=== PATIENT | male | born 1945 | race Caucasian/White ===

== ENCOUNTER 2017-07-30 17:25 | Inpatient (IN) | payer MEDICARE, SELFPAY ==
[2017-07-30 21:19] VITALS: BMI 29.0; BMI 29.1
[2017-07-30 21:40] VITALS: PULSE 83
[2017-07-30 21:54] VITALS: BP 100/46; PULSE 73; RESP 18; TEMP 37.7; O2SAT 96
--- NOTE | 2017-07-30 22:25 | PCM.HP.STD ---
Problem List (1) Neutropenic fever Status: Acute (2) Prostate cancer Status: Chronic (3) HTN (hypertension) Status: Chronic (4) CVA (cerebral vascular accident) Status: Chronic (5) Hyperlipidemia Status: Chronic (6) Depression Status: Chronic (7) Severe sepsis Status: Acute History of Present Illness Date of Admission: 07/30/17 Chief Complaint: fever The patient is a 71 year old M who underwent chemotherapy 2 weeks ago for prostate cancer presents with a one-day history of fever. Patient had a fever felt listless. At home, temperature was around 101 but at the emergency room, according to the family, temperature was 104 Fahrenheit. Patient had chest x-ray that was unremarkable. Patient was found to be neutropenic with an absolute neutrophil count of 200. Patient's oncologist is in the area and patient requested transfer from [facility] to [facility] for further care. In the emergency room, patient received 2 g of ceftriaxone 4.5 g of Zosyn normal saline and 1500 of vancomycin. Patient's fever did improve afterwards. I do not have an actual temperatures documented as the information provided from [facility] will involve the medications he was given lab work and the chest x-ray report. [] Past Medical History Past Medical History (Chronic Problems): Chronic Problems Prostate cancer (Chronic) HTN (hypertension) (Chronic) CVA (cerebral vascular accident) (Chronic) Hyperlipidemia (Chronic) Depression (Chronic) Allergies No Known Allergies Allergy (Verified 07/30/17 21:54) Home Medications: Ambulatory Orders Medication Instructions Recorded Aspirin [Aspirin, Baby] 81 mg PO DAILY@0800 07/30/17 Atorvastatin Calcium [Lipitor] 40 mg PO QHS 07/30/17 Bupropion HCl [Bupropion Xl] 150 mg PO DAILY 07/30/17 Cholecalciferol (VIT D3) [Vitamin 2,000 unit PO DAILY 07/30/17 D] Clopidogrel Bisulfate [Plavix] 75 mg PO DAILY 07/30/17 Cyanocobalamin (Vitamin B-12) 1,000 mcg PO DAILY 07/30/17 [Vitamin B-12] Hydrochlorothiazide 12.5 mg PO QODAY 07/30/17 [Hydrochlorothiazide] Pantoprazole Sodium [Protonix] 40 mg PO DAILY 07/30/17 Valsartan [Valsartan] 320 mg PO DAILY 07/30/17 Psychiatric History: Depression Lives: Spouse/ Significant Other Smoking Status: Former smoker Tobacco Use: Non-smoker Alcohol: None - Since starting chemotherapy Drugs: None - *Family History Sibling History Items: Cancer - Father with prostate and throat cancer Review of Systems Constitutional: Reports: Chills, Fever Eyes: Denies: Blurred vision, Double vision HEENT: Denies: Head Aches, Sinus Congestion, Sinus Drainage Cardiovascular: Denies: Chest Pain, Edema Respiratory: Reports: Cough. Denies: Shortness of breath at rest, Sputum production Gastrointestinal: Reports: Diarrhea, Nausea. Denies: Abdominal Pain, Vomiting Genitourinary: Denies: Dysuria, Incontinence Musculoskeletal: Denies: Joint Pain, Joint Tenderness Skin: Denies: Rash, Wounds Neurological: Denies: Numbness, Tingling, Focal weakness Psychiatric: Reports: Depression. Denies: Anxiety Endocrine: Denies: Change in Body Habitus, Heat/ Cold Intolerance Hematologic/ Lymphatic: Reports: Easy Bruising. Denies: Easy Bleeding, Hx of blood clot VTE Information - Inpt Only VTE Present on Admission: No VTE Pharm Prophylaxis ordered?: Yes Patient Problems: Active and Suspected Problems Neutropenic fever (Acute) Severe sepsis (Acute) - Physical Exam General: Alert, Cooperative, No apparent distress, - - Febrile HEENT: Atraumatic, PERRLA, EOMI, Normocephalic Oral: Moist Mucosa, No Gingival or Mucosal Lesions/ Ulcerations, - - Dentures in place Neck: No Nodes, Thyroid Normal Size and Texture Lungs: Clear to auscultation, Normal air movement, No rhonchi, No wheeze Cardiovascular: Regular rate, Regular Rhythm, Normal S1, Normal S2, No murmurs Abdomen: Bowel Sounds Present, Soft, Non Tender, Non-Distended, No Hepato-splenomegaly Extremities: No edema, No Calf Tenderness Skin: No rashes, - - Some bruising on his left elbow Musculoskeletal: No Tenderness to Palpation of Joints or Extremities, No Muscle Wasting Neurological: Deep Tendon Reflexes 2+/4 and Symmetrical, Neuro grossly intact, - - No clonus Psych/Mental Status: Normal Affect, Appropriate Vital Signs Temp Pulse Resp BP Pulse Ox 37.7 C H 73 18 100/46 L 96 07/30/17 21:54 07/30/17 21:54 07/30/17 21:54 07/30/17 21:54 07/30/17 21:54 Oxygen Flow Rate (L/min) 2 Oxygen Delivery Method Nasal Cannula Weight: 85.5 kg Body Mass Index (BMI) 29.0 Chest x-ray report from [facility] showed no acute findings. CBC showed a white count of 1.1, hemoglobin 12.7 and platelets of 198. Absolute neutrophil count was 200. Urinalysis was negative. BMP sodium 141, potassium 3.9, glucose 101, creatinine 1.08. LFTs were unremarkable. Lactic acid was 2.7 Assessment/Plan Active and Suspected Problems Neutropenic fever (Acute) Severe sepsis (Acute) 1. Severe sepsis Present on admission No clear source identified Urinalysis at the outside hospital was negative Chest x-ray at the outside hospital was negative Blood cultures were supposedly done at [facility] and will need to be followed up. Recheck blood cultures here Will check respiratory viral panel as well IV fluids and recheck lactic acid. 2. Neutropenic fever Absolute neutrophil count is 200 Patient will be on aztreonam. No indication for vancomycin at this time. Oncology will be on consultation to assist with his neutropenia. 3. 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 4. DVT prophylaxis with Lovenox 5. Advanced care planning. Patient wishes to be DNR Comfort Care arrest, no intubation and no PEG tube. Code Visit Inpatient E&M: 22918 Init Hosp L3
--- NOTE | 2017-07-30 22:35 | HP.PCM_ITS ---
Problem List (1) Neutropenic fever Status: Acute (2) Prostate cancer Status: Chronic (3) HTN (hypertension) Status: Chronic (4) CVA (cerebral vascular accident) Status: Chronic (5) Hyperlipidemia Status: Chronic (6) Depression Status: Chronic (7) Severe sepsis Status: Acute History of Present Illness Date of Admission: 07/30/17 Chief Complaint: fever The patient is a 71 year old M who underwent chemotherapy 2 weeks ago for prostate cancer presents with a one-day history of fever. Patient had a fever felt listless. At home, temperature was around 101 but at the emergency room, according to the family, temperature was 104 Fahrenheit. Patient had chest x- ray that was unremarkable. Patient was found to be neutropenic with an absolute neutrophil count of 200. Patient's oncologist is in the area and patient requested transfer from [facility] to [facility] for further care. In the emergency room, patient received 2 g of ceftriaxone 4.5 g of Zosyn normal saline and 1500 of vancomycin. Patient's fever did improve afterwards. I do not have an actual temperatures documented as the information provided from [facility] will involve the medications he was given lab work and the chest x-ray report. [] Past Medical History Past Medical History (Chronic Problems): Chronic Problems Prostate cancer (Chronic) HTN (hypertension) (Chronic) CVA (cerebral vascular accident) (Chronic) Hyperlipidemia (Chronic) Depression (Chronic) Allergies No Known Allergies Allergy (Verified 07/30/17 21:54) Home Medications: Ambulatory Orders Medication Instructions Recorded Aspirin [Aspirin, Baby] 81 mg PO DAILY@0800 07/30/17 Atorvastatin Calcium [Lipitor] 40 mg PO QHS 07/30/17 Bupropion HCl [Bupropion Xl] 150 mg PO DAILY 07/30/17 Cholecalciferol (VIT D3) [Vitamin 2,000 unit PO DAILY 07/30/17 D] Clopidogrel Bisulfate [Plavix] 75 mg PO DAILY 07/30/17 Cyanocobalamin (Vitamin B-12) 1,000 mcg PO DAILY 07/30/17 [Vitamin B-12] Hydrochlorothiazide 12.5 mg PO QODAY 07/30/17 [Hydrochlorothiazide] Pantoprazole Sodium [Protonix] 40 mg PO DAILY 07/30/17 Valsartan [Valsartan] 320 mg PO DAILY 07/30/17 Psychiatric History: Depression Lives: Spouse/ Significant Other Smoking Status: Former smoker Tobacco Use: Non-smoker Alcohol: None - Since starting chemotherapy Drugs: None - *Family History Sibling History Items: Cancer - Father with prostate and throat cancer Review of Systems Constitutional: Reports: Chills, Fever Eyes: Denies: Blurred vision, Double vision HEENT: Denies: Head Aches, Sinus Congestion, Sinus Drainage Cardiovascular: Denies: Chest Pain, Edema Respiratory: Reports: Cough. Denies: Shortness of breath at rest, Sputum production Gastrointestinal: Reports: Diarrhea, Nausea. Denies: Abdominal Pain, Vomiting Genitourinary: Denies: Dysuria, Incontinence Musculoskeletal: Denies: Joint Pain, Joint Tenderness Skin: Denies: Rash, Wounds Neurological: Denies: Numbness, Tingling, Focal weakness Psychiatric: Reports: Depression. Denies: Anxiety Endocrine: Denies: Change in Body Habitus, Heat/ Cold Intolerance Hematologic/ Lymphatic: Reports: Easy Bruising. Denies: Easy Bleeding, Hx of blood clot VTE Information - Inpt Only VTE Present on Admission: No VTE Pharm Prophylaxis ordered?: Yes Patient Problems: Active and Suspected Problems Neutropenic fever (Acute) Severe sepsis (Acute) - Physical Exam General: Alert, Cooperative, No apparent distress, - - Febrile HEENT: Atraumatic, PERRLA, EOMI, Normocephalic Oral: Moist Mucosa, No Gingival or Mucosal Lesions/ Ulcerations, - - Dentures in place Neck: No Nodes, Thyroid Normal Size and Texture Lungs: Clear to auscultation, Normal air movement, No rhonchi, No wheeze Cardiovascular: Regular rate, Regular Rhythm, Normal S1, Normal S2, No murmurs Abdomen: Bowel Sounds Present, Soft, Non Tender, Non-Distended, No Hepato- splenomegaly Extremities: No edema, No Calf Tenderness Skin: No rashes, - - Some bruising on his left elbow Musculoskeletal: No Tenderness to Palpation of Joints or Extremities, No Muscle Wasting Neurological: Deep Tendon Reflexes 2+/4 and Symmetrical, Neuro grossly intact, - - No clonus Psych/Mental Status: Normal Affect, Appropriate Vital Signs Temp Pulse Resp BP Pulse Ox 37.7 C H 73 18 100/46 L 96 07/30/17 21:54 07/30/17 21:54 07/30/17 21:54 07/30/17 21:54 07/30/17 21:54 Oxygen Flow Rate (L/min) 2 Oxygen Delivery Method Nasal Cannula Weight: 85.5 kg Body Mass Index (BMI) 29.0 Chest x-ray report from [facility] showed no acute findings. CBC showed a white count of 1.1, hemoglobin 12.7 and platelets of 198. Absolute neutrophil count was 200. Urinalysis was negative. BMP sodium 141, potassium 3.9, glucose 101, creatinine 1.08. LFTs were unremarkable. Lactic acid was 2.7 Assessment/Plan Active and Suspected Problems Neutropenic fever (Acute) Severe sepsis (Acute) 1. Severe sepsis * Present on admission * No clear source identified * Urinalysis at the outside hospital was negative * Chest x-ray at the outside hospital was negative * Blood cultures were supposedly done at [facility] and will need to be followed up. Recheck blood cultures here * Will check respiratory viral panel as well * IV fluids and recheck lactic acid. 2. Neutropenic fever * Absolute neutrophil count is 200 * Patient will be on aztreonam. No indication for vancomycin at this time. * Oncology will be on consultation to assist with his neutropenia. 3. Prostate cancer * Metastasis to the vertebrae and ribs * Oncology will be on consultation. 4. DVT prophylaxis with Lovenox 5. Advanced care planning. Patient wishes to be DNR Comfort Care arrest, no intubation and no PEG tube. Code Visit Inpatient E&M: 57554 Init Hosp L3
[2017-07-30] MEDS: 0.9% Normal Saline 1,000 ML 150 ML IV (22:49)
[2017-07-30 23:06] VITALS: PULSE 77
[2017-07-30 23:35] VITALS: O2SAT 92
[2017-07-31] VITALS (18 sets, daily range): BP systolic 85–109; BP diastolic 45–53; PULSE 73–142; RESP 16–18; TEMP 36.6–37.3; O2SAT 92–97
[2017-07-31 03:08] LABS: Reflex Lactate? Y
--- NOTE | 2017-07-31 04:19 | EKG12_ITS ---
Test Reason : RHYTHM CHANGE Blood Pressure : / mmHG Vent. Rate : 095 BPM Atrial Rate : 094 BPM P-R Int : 000 ms QRS Dur : 098 ms QT Int : 402 ms P-R-T Axes : 000 -39 002 degrees QTc Int : 505 ms Atrial fibrillation Left axis deviation Prolonged QT Abnormal ECG When compared with ECG of 31-JUL-2017 04:25, MANUAL COMPARISON REQUIRED, DATA IS UNCONFIRMED Confirmed by SCARLET LACEY, PEPE ([id number]), news videotape editor ARIANNA ROCHA ([id number] on 08/01/2017 3:06:11 PM Referred By: Marvin Virgen Confirmed By:PEPE NOVAK MD
--- NOTE | 2017-07-31 04:38 | ECHOCS_ITS ---
Reason For Study: AFIB Procedure This was a 2D Doppler, Color Flow transthoracic echocardiogram. The study was technically difficult. PT could not stay in left lateral decubitus position for exam. Contrast injection was performed. Exam performed portable in patient room. Left Ventricle Mild concentric left ventricular hypertrophy. The estimated ejection fraction is 75 %. No regional wall motion abnormalities noted. Right Ventricle NL RV Size with possible apica RV strain, cannot exclude pulmonary embolus as cause of RV dysfunction. Paradoxical septal motion consistent with RV volume overload. Atria The left atrium is severely enlarged. Normal atrial septum. Mitral Valve Mild diffuse mitral valve thickening. Severe mitral annular calcification extending into the posterior leaflet. Tricuspid Valve Normal tricuspid valve. Trivial tricuspid valve insufficiency. Right ventricular systolic pressure estimated to be 52 mmHg. Moderate pulmonary hypertension. Aortic Valve Trisinus/trileaflet aortic valve. Mild diffuse aortic valve thickening. Pulmonic Valve The pulmonic valve is not well visualized. Great Vessels Normal aortic root. Normal arch. The inferior vena cava is dilated. No collapse of the inferior vena cava. Pericardium/Pleural No pericardial effusion. Medication Diluted definity 2.5ml given slow IV push to enhance endocardial definition. MMode/2D Measurements & Calculations LVIDd: 4.7 cm IVSd: 1.4 cm Ao root diam: 3.2 cm LVIDs: 3.5 cm LVPWd: 1.2 cm LA dimension: 4.1 cm FS: 26.2 % LAV(MOD-bp): 75.9 ml LA A4 area: 24.4 cm2 LAV(MOD-bp) Indexed: 38.3 ml/m2 LAV(MOD-sp2): 76.1 ml LAV(MOD-sp4): 75.2 ml Doppler Measurements & Calculations MV E max vince: 130.2 cm/sec Ao V2 max: 131.8 cm/sec LV V1 max: 128.0 cm/sec Ao max P.0 mmHg LV V1 max P.6 mmHg PA V2 max: 79.6 cm/sec TR max vince: 307.7 cm/sec TR max P.9 mmHg Interpretation Summary Mild concentric left ventricular hypertrophy. The estimated ejection fraction is 75 %. NL RV Size with possible apica RV strain, cannot exclude pulmonary embolus as cause of RV dysfunction. The left atrium is severely enlarged. Trivial tricuspid valve insufficiency. Right ventricular systolic pressure estimated to be 52 mmHg. Moderate pulmonary hypertension. Pt appears to be in atrial fibrillation. The study was technically difficult. There is no comparison study available. Contrast injection was performed. Ordering Physician: Srinivas Back Referring Physician: Marvin Virgen Performed By: Barb Aragon RDCS, RVT
[2017-07-31] MEDS: 0.9% Normal Saline 1,000 ML 150 ML IV (05:20)
[2017-07-31 05:30] LABS: Basophil# 0.02 X10^3/uL; Differential Indicated SCAN CRITERIA MET; Eosinophil# 0.01 X10^3/uL; Hematocrit 32.2 % (40-54); Hemoglobin 10.7 g/dl (13.0-16.5); Mean Corp Hgb Conc 33.2 g/gl (32-36); Mean Corpuscular Hgb 29.2 pg (27.0-32.0); Mean Corpuscular Volume 87.7 fL (80-94); Mean Platelet Vol. 9.8 fl (6.2-12.0); Monocyte# 1.81 X10^3/uL; POSITIVE COUNT NO; POSITIVE DIFFERENTIAL YES; POSITIVE MORPHOLOGY NO; Platelet Count 142 K/mm3 (150-450); RBC Distribution Width SD 44.8 fl (35.1-43.9); Red Blood Count 3.67 M/mm3 (4.6-6.2)
[2017-07-31 05:39] LABS: Anion Gap 12 (5-15); BUN 29 mg/dL (7-18); BUN/Creat Ratio 16.5 RATIO (10-20); Calcium,Total 7.6 mg/dL (8.5-10.1); Chloride 110 mmol/L (98-107); Creatinine, Serum 1.76 mg/dL (0.70-1.30); EST Glomerular Filtration Rate 41 mL/min (>60); Est Glom Filt Rate - Afr Amer 49 mL/min (>60); Estimated Creatinine Clearance 34.95 ml/min; Glucose 61 mg/dL (74-106); Potassium 3.4 mmol/L (3.5-5.1); Sodium Level 143 mmol/L (136-145)
[2017-07-31 05:43] LABS: Lactic Acid 1.9 mmol/L (0.4-2.0)
[2017-07-31] MEDS: Metoprolol Tartrate 25 MG Tablet PO ×2 (06:19→21:23)
[2017-07-31 06:23] LABS: Scan Smear per Review Criteria MANUAL DIFF
[2017-07-31 06:24] LABS: Basophil 1 % (0-1); Lymphocyte 37 % (19-41); Metamyelocyte 1 % (0-1); Monocyte 25 % (0-10); Neutrophil-Band 19 % (0-5); Neutrophil-Segmented 18 % (47-70); White Blood Count 4.2 K/mm3 (4.4-11.0)
[2017-07-31 06:25] LABS: Vacuolated Cells 2+
[2017-07-31 06:27] LABS: Absolute Lymphocyte Count 1.55 X10^3/ul (0.83-4.51); Absolute Neutrophil Count 1.6 X10^3/uL (2.0-7.7); Lymphocyte # 1.55 X10^3/ul (4.0); Neutrophil # 1.55 X10^3/uL (2.7-7.7)
--- NOTE | 2017-07-31 08:06 | PCM.CONS.B ---
Problem List (1) Neutropenic fever Status: Acute (2) Prostate cancer Status: Chronic (3) Acute renal injury Status: Acute (4) Diarrhea due to drug Status: Acute - Consult Date of Consult: 07/31/17 The patient was seen requested by Dr. Lopez reguarding patient with peripheral vascular disease, metastatic prostate cancer who presented with neutropenic fever after chemotherapy 13 days ago. Final recommendation will be communicated to Dr. Lopez also by electronic medical records. - Reason for Consult Neutropenic fever Diarrhea Metastatic prostate cancer History of Present Illness Date of Admission: 07/30/17 Chief Complaint: fever The patient is a 71 year old M who underwent chemotherapy 2 weeks ago with Docetaxel 75mg/m2 for hormone refractory metastatic prostate cancer presents with a one-day history of fever, chills with diarrhea. Patient had a fever felt less and hypotensive in the ER at [facility]. At home, temperature was around 101 but at the emergency room, according to the family, temperature was 104 Fahrenheit. Patient had chest x-ray that was unremarkable. Patient was found to be neutropenic with an absolute neutrophil count of 200. In the emergency room, patient received IV bolus 1500 cc and Zosyn and vancomycin. Patient's fever did improve afterwards. Oncological history: Patient previous endocrine therapies LHRH agonist Zytiga & prednisone Enzuludimide Past Medical History Past Medical History (Chronic Problems): Chronic Problems Prostate cancer (Chronic) HTN (hypertension) (Chronic) CVA (cerebral vascular accident) (Chronic) Hyperlipidemia (Chronic) Depression (Chronic) Allergies No Known Allergies Allergy (Verified 07/30/17 21:54) Home Medications: Ambulatory Orders Medication Instructions Recorded Aspirin [Aspirin, Baby] 81 mg PO DAILY@0800 07/30/17 Atorvastatin Calcium [Lipitor] 40 mg PO QHS 07/30/17 Bupropion HCl [Bupropion Xl] 150 mg PO DAILY 07/30/17 Cholecalciferol (VIT D3) [Vitamin 2,000 unit PO DAILY 07/30/17 D] Clopidogrel Bisulfate [Plavix] 75 mg PO DAILY 07/30/17 Cyanocobalamin (Vitamin B-12) 1,000 mcg PO DAILY 07/30/17 [Vitamin B-12] Hydrochlorothiazide 12.5 mg PO QODAY 07/30/17 [Hydrochlorothiazide] Pantoprazole Sodium [Protonix] 40 mg PO DAILY 07/30/17 Valsartan [Valsartan] 320 mg PO DAILY 07/30/17 Psychiatric History: Depression Lives: Spouse/ Significant Other Smoking Status: Former smoker Tobacco Use: Non-smoker Alcohol: None - Since starting chemotherapy Drugs: None - *Family History Sibling History Items: Cancer - Father with prostate and throat cancer Review of Systems Constitutional: Reports: Chills, Fever Eyes: Denies: Blurred vision, Double vision HEENT: Denies: Head Aches, Sinus Congestion, Sinus Drainage Cardiovascular: Denies: Chest Pain, Edema Respiratory: Reports: Cough. Denies: Shortness of breath at rest, Sputum production Gastrointestinal: Reports: Diarrhea, Nausea. Denies: Abdominal Pain, Vomiting Genitourinary: Denies: Dysuria, Incontinence Musculoskeletal: Denies: Joint Pain, Joint Tenderness Skin: Denies: Rash, Wounds Neurological: Denies: Numbness, Tingling, Focal weakness Psychiatric: Reports: Depression. Denies: Anxiety Endocrine: Denies: Change in Body Habitus, Heat/ Cold Intolerance Hematologic/ Lymphatic: Reports: Easy Bruising. Denies: Easy Bleeding, Hx of blood clot VTE Information - Inpt Only VTE Present on Admission: No VTE Pharm Prophylaxis ordered?: Yes Patient Problems: Active and Suspected Problems Neutropenic fever (Acute) Diarrhea (Acute) Renal injury (Acute) - Physical Exam General: Alert, Cooperative, No apparent distress, - - Febrile HEENT: Atraumatic, PERRLA, EOMI, Normocephalic Oral: Moist Mucosa, No Gingival or Mucosal Lesions/ Ulcerations, - - Dentures in place Neck: No Nodes, Thyroid Normal Size and Texture Lungs: Clear to auscultation, Normal air movement, No rhonchi, No wheeze Cardiovascular: Regular rate, Regular Rhythm, Normal S1, Normal S2, No murmurs Abdomen: Bowel Sounds Present, Soft, Non Tender, Non-Distended, No Hepato-splenomegaly Extremities: No edema, No Calf Tenderness Skin: No rashes, - - Some bruising on his left elbow Musculoskeletal: No Tenderness to Palpation of Joints or Extremities, No Muscle Wasting Neurological: Deep Tendon Reflexes 2+/4 and Symmetrical, Neuro grossly intact, - - No clonus Psych/Mental Status: Normal Affect, Appropriate Vital Signs - 24 hr Temp Pulse Resp BP BP Pulse Ox 07/31/17 06:59 100 07/31/17 06:19 99 92/50 L 07/31/17 06:15 98.0 F 99 18 92/50 L 96 07/31/17 05:29 87/46 L 07/31/17 05:27 97.8 F 106 H 18 93/45 L 93 07/31/17 04:22 142 H 07/31/17 04:00 99.1 F 94 18 93/49 L 95 07/31/17 03:10 73 07/30/17 23:35 92 07/30/17 23:06 77 07/30/17 21:54 99.9 F H 73 18 100/46 L 96 07/30/17 21:40 83 Oxygen Flow Rate (L/min) 2 Oxygen Delivery Method Nasal Cannula Weight: 85.5 kg Body Mass Index (BMI) 29.0 Chest x-ray report from [facility] showed no acute findings. Laboratory Results - last 24 hr 07/30/17 07/31/17 07/31/17 22:58 05:05 05:05 WBC 4.2 L RBC 3.67 L Hgb 10.7 L Hct 32.2 L MCV 87.7 MCH 29.2 MCHC 33.2 RDW 14.0 RDW Differential 44.8 H Plt Count 142 L MPV 9.8 Immature Gran % (Auto) SURGICAL SERVICES TECH Neut % (Auto) SURGICAL SERVICES TECH Lymph % (Auto) SURGICAL SERVICES TECH [place] % (Auto) SURGICAL SERVICES TECH Eos % (Auto) SURGICAL SERVICES TECH Baso % (Auto) SURGICAL SERVICES TECH Absolute Neuts (auto) 1.6 L Absolute Lymphs (auto) 1.55 Total Counted Not Reportable Neutrophils % (Manual) 18 L Band Neutrophils % 19 H Lymphocytes % (Manual) 37 Monocytes % (Manual) 25 H Basophils % (Manual) 1 Metamyelocytes % 1 Differential Comment 2+ Diff Path Review May foll Sodium 143 Potassium 3.4 L Chloride 110 H Carbon Dioxide 21.0 Anion Gap 12 BUN 29 H Creatinine 1.76 H Estim Creat Clear Calc 34.95 Est GFR (MDRD) Af Amer 49 L Est GFR (MDRD) Non-Af 41 L BUN/Creatinine Ratio 16.5 Glucose 61 L Lactic Acid 2.0 Calcium 7.6 L Troponin I 07/31/17 07/31/17 05:05 05:05 WBC RBC Hgb Hct MCV MCH MCHC RDW RDW Differential Plt Count MPV Immature Gran % (Auto) Neut % (Auto) Lymph % (Auto) [place] % (Auto) Eos % (Auto) Baso % (Auto) Absolute Neuts (auto) Absolute Lymphs (auto) Total Counted Neutrophils % (Manual) Band Neutrophils % Lymphocytes % (Manual) Monocytes % (Manual) Basophils % (Manual) Metamyelocytes % Differential Comment Diff Path Review Sodium Potassium Chloride Carbon Dioxide Anion Gap BUN Creatinine Estim Creat Clear Calc Est GFR (MDRD) Af Amer Est GFR (MDRD) Non-Af BUN/Creatinine Ratio Glucose Lactic Acid 1.9 Calcium Troponin I 0.027 Microbiology Past 72 Hours 07/31/17 02:45 C. difficile DNA Amplification - Final Stool Assessment/Plan Active and Suspected Problems Neutropenic fever (Acute) Diarrhea from chemotherapy (Acute) Acute renal injury (Acute) 1. Neutropenic fever Present on admission No clear source of infection except for diarrhea Urinalysis at the outside hospital was negative Chest x-ray at the outside hospital was negative Continue empiric antibiotic, meropenem x 24 more hours; if blood cultures negative may DC tomorrow. Blood cultures are pending respiratory viral panel and c difficile toxin and stool cultures 2. Anemia & neutropenia secondary chemotherapy Monitor CBC daily No need for G-CSF; past jordan and WBC improving Neulasta with subsequent cycle of chemotherapy 3. Acute renal injury secondary to chemotherapy, dehydration and diarrhea. Continue IV fluid and monitor electrolytes and replace if necessary Monitor Electrolytes and renal functions Hold HCTZ & Diovan because of hypotension 4. Diarrhea Sandostatin 100mcg sq q. 8 hours LactoBacillus 4 times daily Change Regular diet to BRAT diet 5. Metastatic prostate cancer Follow-up next week next cycle of chemotherapy in my office. cc Dr. Lawrence Barajas; Dr. Lamont Prakash
--- NOTE | 2017-07-31 08:20 | EKG12_ITS ---
Test Reason : TACHY Blood Pressure : / mmHG Vent. Rate : 117 BPM Atrial Rate : 119 BPM P-R Int : 000 ms QRS Dur : 094 ms QT Int : 374 ms P-R-T Axes : 000 -39 010 degrees QTc Int : 521 ms Atrial fibrillation Left axis deviation Nonspecific ST abnormality Prolonged QT Abnormal ECG No previous ECGs available Confirmed by SCARLET LACEY, PEPE ([id number]), editorial specialist ARIANNA ROCHA ([id number] on 08/01/2017 3:06:49 PM Referred By: Marvin Virgen Confirmed By:PEPE NOVAK MD
--- NOTE | 2017-07-31 08:33 | CON.PCM_ITS ---
Problem List (1) Neutropenic fever Status: Acute (2) Prostate cancer Status: Chronic (3) Acute renal injury Status: Acute (4) Diarrhea due to drug Status: Acute - Consult Date of Consult: 07/31/17 The patient was seen requested by Dr. Lopez reguarding patient with peripheral vascular disease, metastatic prostate cancer who presented with neutropenic fever after chemotherapy 13 days ago. Final recommendation will be communicated to Dr. Lopez also by electronic medical records. - Reason for Consult Neutropenic fever Diarrhea Metastatic prostate cancer History of Present Illness Date of Admission: 07/30/17 Chief Complaint: fever The patient is a 71 year old M who underwent chemotherapy 2 weeks ago with Docetaxel 75mg/m2 for hormone refractory metastatic prostate cancer presents with a one-day history of fever, chills with diarrhea. Patient had a fever felt less and hypotensive in the ER at [facility]. At home, temperature was around 101 but at the emergency room, according to the family, temperature was 104 Fahrenheit. Patient had chest x-ray that was unremarkable. Patient was found to be neutropenic with an absolute neutrophil count of 200. In the emergency room, patient received IV bolus 1500 cc and Zosyn and vancomycin. Patient's fever did improve afterwards. Oncological history: Patient previous endocrine therapies LHRH agonist Zytiga & prednisone Enzuludimide Past Medical History Past Medical History (Chronic Problems): Chronic Problems Prostate cancer (Chronic) HTN (hypertension) (Chronic) CVA (cerebral vascular accident) (Chronic) Hyperlipidemia (Chronic) Depression (Chronic) Allergies No Known Allergies Allergy (Verified 07/30/17 21:54) Home Medications: Ambulatory Orders Medication Instructions Recorded Aspirin [Aspirin, Baby] 81 mg PO DAILY@0800 07/30/17 Atorvastatin Calcium [Lipitor] 40 mg PO QHS 07/30/17 Bupropion HCl [Bupropion Xl] 150 mg PO DAILY 07/30/17 Cholecalciferol (VIT D3) [Vitamin 2,000 unit PO DAILY 07/30/17 D] Clopidogrel Bisulfate [Plavix] 75 mg PO DAILY 07/30/17 Cyanocobalamin (Vitamin B-12) 1,000 mcg PO DAILY 07/30/17 [Vitamin B-12] Hydrochlorothiazide 12.5 mg PO QODAY 07/30/17 [Hydrochlorothiazide] Pantoprazole Sodium [Protonix] 40 mg PO DAILY 07/30/17 Valsartan [Valsartan] 320 mg PO DAILY 07/30/17 Psychiatric History: Depression Lives: Spouse/ Significant Other Smoking Status: Former smoker Tobacco Use: Non-smoker Alcohol: None - Since starting chemotherapy Drugs: None - *Family History Sibling History Items: Cancer - Father with prostate and throat cancer Review of Systems Constitutional: Reports: Chills, Fever Eyes: Denies: Blurred vision, Double vision HEENT: Denies: Head Aches, Sinus Congestion, Sinus Drainage Cardiovascular: Denies: Chest Pain, Edema Respiratory: Reports: Cough. Denies: Shortness of breath at rest, Sputum production Gastrointestinal: Reports: Diarrhea, Nausea. Denies: Abdominal Pain, Vomiting Genitourinary: Denies: Dysuria, Incontinence Musculoskeletal: Denies: Joint Pain, Joint Tenderness Skin: Denies: Rash, Wounds Neurological: Denies: Numbness, Tingling, Focal weakness Psychiatric: Reports: Depression. Denies: Anxiety Endocrine: Denies: Change in Body Habitus, Heat/ Cold Intolerance Hematologic/ Lymphatic: Reports: Easy Bruising. Denies: Easy Bleeding, Hx of blood clot VTE Information - Inpt Only VTE Present on Admission: No VTE Pharm Prophylaxis ordered?: Yes Patient Problems: Active and Suspected Problems Neutropenic fever (Acute) Diarrhea (Acute) Renal injury (Acute) - Physical Exam General: Alert, Cooperative, No apparent distress, - - Febrile HEENT: Atraumatic, PERRLA, EOMI, Normocephalic Oral: Moist Mucosa, No Gingival or Mucosal Lesions/ Ulcerations, - - Dentures in place Neck: No Nodes, Thyroid Normal Size and Texture Lungs: Clear to auscultation, Normal air movement, No rhonchi, No wheeze Cardiovascular: Regular rate, Regular Rhythm, Normal S1, Normal S2, No murmurs Abdomen: Bowel Sounds Present, Soft, Non Tender, Non-Distended, No Hepato- splenomegaly Extremities: No edema, No Calf Tenderness Skin: No rashes, - - Some bruising on his left elbow Musculoskeletal: No Tenderness to Palpation of Joints or Extremities, No Muscle Wasting Neurological: Deep Tendon Reflexes 2+/4 and Symmetrical, Neuro grossly intact, - - No clonus Psych/Mental Status: Normal Affect, Appropriate Vital Signs - 24 hr Temp Pulse Resp BP BP Pulse Ox 07/31/17 06:59 100 07/31/17 06:19 99 92/50 L 07/31/17 06:15 98.0 F 99 18 92/50 L 96 07/31/17 05:29 87/46 L 07/31/17 05:27 97.8 F 106 H 18 93/45 L 93 07/31/17 04:22 142 H 07/31/17 04:00 99.1 F 94 18 93/49 L 95 07/31/17 03:10 73 07/30/17 23:35 92 07/30/17 23:06 77 07/30/17 21:54 99.9 F H 73 18 100/46 L 96 07/30/17 21:40 83 Oxygen Flow Rate (L/min) 2 Oxygen Delivery Method Nasal Cannula Weight: 85.5 kg Body Mass Index (BMI) 29.0 Chest x-ray report from [facility] showed no acute findings. Laboratory Results - last 24 hr 07/30/17 07/31/17 07/31/17 22:58 05:05 05:05 WBC 4.2 L RBC 3.67 L Hgb 10.7 L Hct 32.2 L MCV 87.7 MCH 29.2 MCHC 33.2 RDW 14.0 RDW Differential 44.8 H Plt Count 142 L MPV 9.8 Immature Gran % (Auto) REAL ESTATE SALESPERSON Neut % (Auto) REAL ESTATE SALESPERSON Lymph % (Auto) REAL ESTATE SALESPERSON [place] % (Auto) REAL ESTATE SALESPERSON Eos % (Auto) REAL ESTATE SALESPERSON Baso % (Auto) REAL ESTATE SALESPERSON Absolute Neuts (auto) 1.6 L Absolute Lymphs (auto) 1.55 Total Counted Not Reportable Neutrophils % (Manual) 18 L Band Neutrophils % 19 H Lymphocytes % (Manual) 37 Monocytes % (Manual) 25 H Basophils % (Manual) 1 Metamyelocytes % 1 Differential Comment 2+ Diff Path Review May foll Sodium 143 Potassium 3.4 L Chloride 110 H Carbon Dioxide 21.0 Anion Gap 12 BUN 29 H Creatinine 1.76 H Estim Creat Clear Calc 34.95 Est GFR (MDRD) Af Amer 49 L Est GFR (MDRD) Non-Af 41 L BUN/Creatinine Ratio 16.5 Glucose 61 L Lactic Acid 2.0 Calcium 7.6 L Troponin I 07/31/17 07/31/17 05:05 05:05 WBC RBC Hgb Hct MCV MCH MCHC RDW RDW Differential Plt Count MPV Immature Gran % (Auto) Neut % (Auto) Lymph % (Auto) [place] % (Auto) Eos % (Auto) Baso % (Auto) Absolute Neuts (auto) Absolute Lymphs (auto) Total Counted Neutrophils % (Manual) Band Neutrophils % Lymphocytes % (Manual) Monocytes % (Manual) Basophils % (Manual) Metamyelocytes % Differential Comment Diff Path Review Sodium Potassium Chloride Carbon Dioxide Anion Gap BUN Creatinine Estim Creat Clear Calc Est GFR (MDRD) Af Amer Est GFR (MDRD) Non-Af BUN/Creatinine Ratio Glucose Lactic Acid 1.9 Calcium Troponin I 0.027 Microbiology Past 72 Hours 07/31/17 02:45 C. difficile DNA Amplification - Final Stool Assessment/Plan Active and Suspected Problems Neutropenic fever (Acute) Diarrhea from chemotherapy (Acute) Acute renal injury (Acute) 1. Neutropenic fever * Present on admission * No clear source of infection except for diarrhea * Urinalysis at the outside hospital was negative * Chest x-ray at the outside hospital was negative * Continue empiric antibiotic, meropenem x 24 more hours; if blood cultures negative may DC tomorrow. * Blood cultures are pending * respiratory viral panel and c difficile toxin and stool cultures 2. Anemia & neutropenia secondary chemotherapy * Monitor CBC daily * No need for G-CSF; past jordan and WBC improving * Neulasta with subsequent cycle of chemotherapy 3. Acute renal injury secondary to chemotherapy, dehydration and diarrhea. * Continue IV fluid and monitor electrolytes and replace if necessary * Monitor Electrolytes and renal functions * Hold HCTZ & Diovan because of hypotension 4. Diarrhea Sandostatin 100mcg sq q. 8 hours LactoBacillus 4 times daily Change Regular diet to BRAT diet 5. Metastatic prostate cancer Follow-up next week next cycle of chemotherapy in my office. cc Dr. Lawrence Barajas; Dr. Lamont Prakash
[2017-07-31] MEDS: Enoxaparin 40 MG/0.4 ML Syringe SC (09:57)
[2017-07-31] MEDS: Cyanocobalamin 500 MCG Tablet 1000 MCG PO (09:57)
[2017-07-31] MEDS: buPROPion (XL) 150 MG TABLET.XL PO (09:57)
[2017-07-31] MEDS: Clopidogrel Bisulfate 75 MG Tablet PO (09:57)
[2017-07-31] MEDS: Pantoprazole Sodium 40 MG Tablet PO (09:57)
[2017-07-31] MEDS: Aspirin 81 MG TAB.CHEW PO (09:57)
--- NOTE | 2017-07-31 10:27 | PCM.CONS.C ---
Problem List (1) Atrial fibrillation Status: Acute (2) HTN (hypertension) Status: Chronic (3) CVA (cerebral vascular accident) Status: Chronic (4) Hyperlipidemia Status: Chronic Reason for Consult Date of Consultation: 07/31/17 Reason for Consultation: Atrial fibrillation, hypertension, CVA History of Present Illness: The patient is a 71 year old M, no known cardiac history, no local hiv counselor, nondiabetic, who apparently suffered a CVA several months ago and has been treated with Plavix therapy only. Patient is recently been diagnosed with prostate cancer, and recently underwent chemotherapy about 1 week ago. Patient developed high-grade fever at home and presented to [facility] for care. As his hematology oncologist is local, he was transferred to [facility]. The patient received antibiotic therapy and a heme consult from Dr. Mora. The patient was found to have atrial fibrillation with rapid ventricular response, and consultation was requested for same. Patient appears to be oscillating back and forth between normal sinus rhythm and atrial fibrillation with rapid ventricular response. A 2D echo with Doppler was performed this morning which I reviewed. The patient has hyperdynamic LV function which appears to be underfilled, EF about 75%, evidence of RV apical strain possibly consistent with acute pulmonary embolism, and at least moderate pulmonary hypertension with an RVSP of 52 mmHg. No previous echocardiograms were available for comparison. In addition the patient has chronic renal insufficiency with a creatinine of 1.7 today. Her graft patient denies any chest pain, angina, but does complain of palpitations when he is in atrial fibrillation. His EKG shows atrial fibrillation with rapid ventricular response, left anterior hemiblock, no acute changes. His initial troponin was 0.027, and is increased to 0.052. [] Past Medical History Allergies/Adverse Reactions: Allergies No Known Allergies Allergy (Verified 07/30/17 21:54) Home Medications: Ambulatory Orders Medication Instructions Recorded Aspirin [Aspirin, Baby] 81 mg PO DAILY@0800 07/30/17 Atorvastatin Calcium [Lipitor] 40 mg PO QHS 07/30/17 Bupropion HCl [Bupropion Xl] 150 mg PO DAILY 07/30/17 Cholecalciferol (VIT D3) [Vitamin 2,000 unit PO DAILY 07/30/17 D] Clopidogrel Bisulfate [Plavix] 75 mg PO DAILY 07/30/17 Cyanocobalamin (Vitamin B-12) 1,000 mcg PO DAILY 07/30/17 [Vitamin B-12] Hydrochlorothiazide 12.5 mg PO QODAY 07/30/17 [Hydrochlorothiazide] Pantoprazole Sodium [Protonix] 40 mg PO DAILY 07/30/17 Valsartan [Valsartan] 320 mg PO DAILY 07/30/17 Past Medical History (Chronic Problems): Chronic Problems Prostate cancer (Chronic) HTN (hypertension) (Chronic) CVA (cerebral vascular accident) (Chronic) Hyperlipidemia (Chronic) Depression (Chronic) Psychiatric History: Depression - *Family History Sibling History Items: Cancer - Father with prostate and throat cancer Lives: Spouse/ Significant Other Smoking Status: Former smoker Tobacco Use: Non-smoker Alcohol: None - Since starting chemotherapy Drugs: None Review of Systems - Review of Systems General: Reports: Fever, Fatigue, Malaise, Weakness. Denies: Night Sweats Cardiovascular: Denies: Chest Discomfort, Shortness of Breath, Orthopnea, PND, Peripheral Edema, Palpitations, Lightheadedness, Dizziness, Near Syncope, Syncope Respiratory: Denies: Cough, Sputum Production, Hemoptysis Gastrointestinal: Denies: Hematemesis, Hematochezia, Melena Genitourinary: Denies: Dysuria, Hematuria Skin: Denies: Rash Subjectve: Patient laying in bed, no acute distress. Objective: Vital Signs Temp Pulse Resp BP Pulse Ox 98.4 F 90 16 105/48 L 93 07/31/17 10:00 07/31/17 10:00 07/31/17 10:00 07/31/17 10:00 07/31/17 10:00 Oxygen Flow Rate (L/min) 2 Oxygen Delivery Method Room Air Weight: 188 lb 7.924 oz Body Mass Index (BMI) 29.0 Intake and Output for Last 24 Hours 07/29/17 07/30/17 07/31/17 23:59 23:59 23:59 Intake Total 100 / 100 1038 / 1038 Output Total 200 / 200 Balance 100 / 100 838 / 838 General: Awake, Alert, Oriented x 3 HEENT: PERRL, EOMI, Sclera Non Icteric Neck: Supple, Good ROM, No Lymph Node Enlargement Lungs: Clear to auscultation Cardiovascular: Irregular Rhythm, Normal S1, Normal S2, No Murmurs, No Rubs, No Gallops Vascular: No Carotid Bruits, Normal Femoral Pulses, Normal Radial Pulses, Normal Dorsalis Pedal Pulse, Normal Posterior Tibial Pulses Abdomen: Bowel Sounds Present, Soft, Non Tender, No HSM, No Organomegaly Extremities: No Cyanosis, No Clubbing, No edema Neurological: No Focal Motor or Sensory Deficit 07/30/17 22:58: Lactic Acid 2.0 07/31/17 05:05: WBC 4.2 L, RBC 3.67 L, Hgb 10.7 L, Hct 32.2 L, MCV 87.7, MCH 29.2, MCHC 33.2, RDW 14.0, RDW Differential 44.8 H, Plt Count 142 L, MPV 9.8, Immature Gran % (Auto) STORE GROUP MANAGER, Neut % (Auto) STORE GROUP MANAGER, Lymph % (Auto) STORE GROUP MANAGER, [place] % (Auto) STORE GROUP MANAGER, Eos % (Auto) STORE GROUP MANAGER, Baso % (Auto) STORE GROUP MANAGER, Absolute Neuts (auto) 1.6 L, Total Counted Not Reportable, Neutrophils % (Manual) 18 L, Band Neutrophils % 19 H, Lymphocytes % (Manual) 37, Monocytes % (Manual) 25 H, Basophils % (Manual) 1, Metamyelocytes % 1 07/31/17 05:05: Sodium 143, Potassium 3.4 L, Chloride 110 H, Carbon Dioxide 21.0, Anion Gap 12, BUN 29 H, Creatinine 1.76 H, Est GFR (MDRD) Af Amer 49 L, Est GFR (MDRD) Non-Af 41 L, BUN/Creatinine Ratio 16.5, Glucose 61 L, Calcium 7.6 L 07/31/17 05:05: Lactic Acid 1.9 07/31/17 05:05: Troponin I 0.027 07/31/17 08:00: Troponin I 0.052 H Rhythm: Atrial fibrillation with rapid ventricular response alternating with normal sinus rhythm. EKG: As above ECHO: As above Stress Test: Cardiac Cath: PCI: CT Surgery: Holter monitor: EPS: PPM: CXR: Chest CT Scan: Assessment/Plan 1. Atrial fibrillation: Patient presents with neutropenic fever, chills, malaise, and paroxysmal atrial fibrillation, with a history of a previous CVA. It is possible the patient may have paroxysmal atrial fibrillation which may have contributed to his CVA in the past. In addition his 2D echo with Doppler suggest although not confirms acute RV strain with RV apical wall motion abnormalities and moderate point hypertension. Given the patient's chronic renal insufficiency, it is somewhat problematic to pursue CTA of his chest to rule out pulmonary embolism at this time. Would recommend d-dimer and lower extremity Dopplers. The patient has any evidence of thrombus, we can assume that he may have a pulmonary embolism which would impact on heart rate controlling medications until this is resolved. I believe the patient would benefit from long-term anticoagulation therapy given his previous CVA, atrial fibrillation, and recently diagnosed prostate cancer requiring chemotherapy giving him an increased risk of thrombus formation. He is currently on renally adjusted subcu Lovenox which I would recommend continuing. Once his cardiac workup is been completed and his diagnosis has been obtained he may require a non-walking nuclear stress test in the near future to determine if he requires catheterization. Another option would be a VQ scan to determine if he has significant perfusion defect. Would Recommend Renally Adjusted Eliquis 2.5 Mg P.O. Twice Daily Once His Cardiac Workup Is Been Completed. 2. Coronary artery disease: The patient is weakly positive troponins which may be demand ischemia given his hyperdynamic LV function and possible acute RV strain. Would recommend a non-walking nuclear stress test to evaluate once the patient is recovered from his illnesses. No indication for urgent catheterization at this time. 3. Hyperlipidemia: Recommend obtaining a fasting lipid profile. His LDL should be less than 70. Continue statin based medications. 4. Discussed with Dr. Xenia Reid. Consultation time took place between 8 AM and 8:30 AM.
--- NOTE | 2017-07-31 10:31 | NM_ITS ---
CLINICAL: Male, 71 years old. Right ventricular strain. NUCLEAR VENTILATION/PERFUSION - LUNG TECHNIQUE: The patient was administered 5.6 mCi of Tc MAA followed by a perfusion lung scan. The patient was administered 48.1 mCi of Tc DTPA aerosol followed by a ventilation lung scan. Comparison made to prior chest radiograph dated . COMPARISON STUDIES : Comparison is made with prior chest radiograph done earlier in the day. FINDINGS: The pulmonary perfusion study demonstrates uniform perfusion throughout both lung briscoe. There are no demonstrated segmental or subsegmental perfusion defects The ventilation study demonstrates uniform ventilation throughout both lung briscoe. There are no segmental or subsegmental ventilation abnormalities. NM/Lung Scan Vent/Perf IMPRESSION: Normal 99m Tc MAA pulmonary perfusion Tc DTPA aerosol ventilation imaging survey, according to revised PIOPED interpretive criteria. Electronically Signed: Moustapha Galarza MD at 13:05 EDT Tel [phone], Service support ,
--- NOTE | 2017-07-31 10:37 | CON.PCM_ITS ---
Problem List (1) Atrial fibrillation Status: Acute (2) HTN (hypertension) Status: Chronic (3) CVA (cerebral vascular accident) Status: Chronic (4) Hyperlipidemia Status: Chronic Reason for Consult Date of Consultation: 07/31/17 Reason for Consultation: Atrial fibrillation, hypertension, CVA History of Present Illness: The patient is a 71 year old M, no known cardiac history, no local napkin band wrapper , nondiabetic, who apparently suffered a CVA several months ago and has been treated with Plavix therapy only. Patient is recently been diagnosed with prostate cancer, and recently underwent chemotherapy about 1 week ago. Patient developed high-grade fever at home and presented to [facility] for care. As his hematology oncologist is local, he was transferred to [facility]. The patient received antibiotic therapy and a heme consult from Dr. Mora. The patient was found to have atrial fibrillation with rapid ventricular response, and consultation was requested for same. Patient appears to be oscillating back and forth between normal sinus rhythm and atrial fibrillation with rapid ventricular response. A 2D echo with Doppler was performed this morning which I reviewed. The patient has hyperdynamic LV function which appears to be underfilled, EF about 75%, evidence of RV apical strain possibly consistent with acute pulmonary embolism, and at least moderate pulmonary hypertension with an RVSP of 52 mmHg. No previous echocardiograms were available for comparison. In addition the patient has chronic renal insufficiency with a creatinine of 1.7 today. Her graft patient denies any chest pain, angina, but does complain of palpitations when he is in atrial fibrillation. His EKG shows atrial fibrillation with rapid ventricular response, left anterior hemiblock, no acute changes. His initial troponin was 0.027, and is increased to 0.052. [] Past Medical History Allergies/Adverse Reactions: Allergies No Known Allergies Allergy (Verified 07/30/17 21:54) Home Medications: Ambulatory Orders Medication Instructions Recorded Aspirin [Aspirin, Baby] 81 mg PO DAILY@0800 07/30/17 Atorvastatin Calcium [Lipitor] 40 mg PO QHS 07/30/17 Bupropion HCl [Bupropion Xl] 150 mg PO DAILY 07/30/17 Cholecalciferol (VIT D3) [Vitamin 2,000 unit PO DAILY 07/30/17 D] Clopidogrel Bisulfate [Plavix] 75 mg PO DAILY 07/30/17 Cyanocobalamin (Vitamin B-12) 1,000 mcg PO DAILY 07/30/17 [Vitamin B-12] Hydrochlorothiazide 12.5 mg PO QODAY 07/30/17 [Hydrochlorothiazide] Pantoprazole Sodium [Protonix] 40 mg PO DAILY 07/30/17 Valsartan [Valsartan] 320 mg PO DAILY 07/30/17 Past Medical History (Chronic Problems): Chronic Problems Prostate cancer (Chronic) HTN (hypertension) (Chronic) CVA (cerebral vascular accident) (Chronic) Hyperlipidemia (Chronic) Depression (Chronic) Psychiatric History: Depression - *Family History Sibling History Items: Cancer - Father with prostate and throat cancer Lives: Spouse/ Significant Other Smoking Status: Former smoker Tobacco Use: Non-smoker Alcohol: None - Since starting chemotherapy Drugs: None Review of Systems - Review of Systems General: Reports: Fever, Fatigue, Malaise, Weakness. Denies: Night Sweats Cardiovascular: Denies: Chest Discomfort, Shortness of Breath, Orthopnea, PND, Peripheral Edema, Palpitations, Lightheadedness, Dizziness, Near Syncope, Syncope Respiratory: Denies: Cough, Sputum Production, Hemoptysis Gastrointestinal: Denies: Hematemesis, Hematochezia, Melena Genitourinary: Denies: Dysuria, Hematuria Skin: Denies: Rash Subjectve: Patient laying in bed, no acute distress. Objective: Vital Signs Temp Pulse Resp BP Pulse Ox 98.4 F 90 16 105/48 L 93 07/31/17 10:00 07/31/17 10:00 07/31/17 10:00 07/31/17 10:00 07/31/17 10:00 Oxygen Flow Rate (L/min) 2 Oxygen Delivery Method Room Air Weight: 188 lb 7.924 oz Body Mass Index (BMI) 29.0 Intake and Output for Last 24 Hours 07/29/17 07/30/17 07/31/17 23:59 23:59 23:59 Intake Total 100 / 100 1038 / 1038 Output Total 200 / 200 Balance 100 / 100 838 / 838 General: Awake, Alert, Oriented x 3 HEENT: PERRL, EOMI, Sclera Non Icteric Neck: Supple, Good ROM, No Lymph Node Enlargement Lungs: Clear to auscultation Cardiovascular: Irregular Rhythm, Normal S1, Normal S2, No Murmurs, No Rubs, No Gallops Vascular: No Carotid Bruits, Normal Femoral Pulses, Normal Radial Pulses, Normal Dorsalis Pedal Pulse, Normal Posterior Tibial Pulses Abdomen: Bowel Sounds Present, Soft, Non Tender, No HSM, No Organomegaly Extremities: No Cyanosis, No Clubbing, No edema Neurological: No Focal Motor or Sensory Deficit 07/30/17 22:58: Lactic Acid 2.0 07/31/17 05:05: WBC 4.2 L, RBC 3.67 L, Hgb 10.7 L, Hct 32.2 L, MCV 87.7, MCH 29.2, MCHC 33.2, RDW 14.0, RDW Differential 44.8 H, Plt Count 142 L, MPV 9.8, Immature Gran % (Auto) UNIT DIRECTOR, Neut % (Auto) UNIT DIRECTOR, Lymph % (Auto) UNIT DIRECTOR, [place] % (Auto) UNIT DIRECTOR , Eos % (Auto) UNIT DIRECTOR, Baso % (Auto) UNIT DIRECTOR, Absolute Neuts (auto) 1.6 L, Total Counted Not Reportable, Neutrophils % (Manual) 18 L, Band Neutrophils % 19 H, Lymphocytes % (Manual) 37, Monocytes % (Manual) 25 H, Basophils % (Manual) 1, Metamyelocytes % 1 07/31/17 05:05: Sodium 143, Potassium 3.4 L, Chloride 110 H, Carbon Dioxide 21.0 , Anion Gap 12, BUN 29 H, Creatinine 1.76 H, Est GFR (MDRD) Af Amer 49 L, Est GFR (MDRD) Non-Af 41 L, BUN/Creatinine Ratio 16.5, Glucose 61 L, Calcium 7.6 L 07/31/17 05:05: Lactic Acid 1.9 07/31/17 05:05: Troponin I 0.027 07/31/17 08:00: Troponin I 0.052 H Rhythm: Atrial fibrillation with rapid ventricular response alternating with normal sinus rhythm. EKG: As above ECHO: As above Stress Test: Cardiac Cath: PCI: CT Surgery: Holter monitor: EPS: PPM: CXR: Chest CT Scan: Assessment/Plan 1. Atrial fibrillation: Patient presents with neutropenic fever, chills, malaise, and paroxysmal atrial fibrillation, with a history of a previous CVA. It is possible the patient may have paroxysmal atrial fibrillation which may have contributed to his CVA in the past. In addition his 2D echo with Doppler suggest although not confirms acute RV strain with RV apical wall motion abnormalities and moderate point hypertension. Given the patient's chronic renal insufficiency, it is somewhat problematic to pursue CTA of his chest to rule out pulmonary embolism at this time. Would recommend d-dimer and lower extremity Dopplers. The patient has any evidence of thrombus, we can assume that he may have a pulmonary embolism which would impact on heart rate controlling medications until this is resolved. I believe the patient would benefit from long-term anticoagulation therapy given his previous CVA, atrial fibrillation, and recently diagnosed prostate cancer requiring chemotherapy giving him an increased risk of thrombus formation. He is currently on renally adjusted subcu Lovenox which I would recommend continuing. Once his cardiac workup is been completed and his diagnosis has been obtained he may require a non-walking nuclear stress test in the near future to determine if he requires catheterization. Another option would be a VQ scan to determine if he has significant perfusion defect. Would Recommend Renally Adjusted Eliquis 2.5 Mg P.O. Twice Daily Once His Cardiac Workup Is Been Completed. 2. Coronary artery disease: The patient is weakly positive troponins which may be demand ischemia given his hyperdynamic LV function and possible acute RV strain. Would recommend a non-walking nuclear stress test to evaluate once the patient is recovered from his illnesses. No indication for urgent catheterization at this time. 3. Hyperlipidemia: Recommend obtaining a fasting lipid profile. His LDL should be less than 70. Continue statin based medications. 4. Discussed with Dr. Xenia Reid. Consultation time took place between 8 AM and 8:30 AM.
[2017-07-31 11:09] LABS: Pathologist Review Reviewed
[2017-07-31 11:46] LABS: Cholesterol 64 mg/dL (200); High Density Lipoprotein 33 mg/dL; Triglycerides 107 mg/dL; Very Low Density Lipoprotein 21 mg/dL (5-40)
--- NOTE | 2017-07-31 11:50 | RAD_ITS ---
STUDY: X-RAY CHEST REASON FOR EXAM: Male, 71 years old. Cough. TECHNIQUE: PA and lateral views of the chest. COMPARISON: None. FINDINGS: Mild degree of increased markings with areas of confluence at the right lung base medially. Mild increased markings at the left lung base as well. This may represent atelectasis and/or early infiltrate but follow-up is recommended. There is no demonstrated pleural abnormality. Normal size heart. Normal mediastinum and ro. Normal visualized pulmonary arteries. There is atherosclerotic calcification of the aortic arch with tortuosity. There is demineralization of the osseous structures. Normal visualized ribs, clavicles, and shoulders. There is no demonstrated abnormality of the visualized soft tissue structures of the upper abdomen. RAD/Chest PA and Lateral IMPRESSION: Mild degree of increased markings at the lung bases slightly more prominent on the right side as described. This may represent either atelectasis and/or early infiltrate. Follow-up is recommended. Electronically Signed: Moustapha Galarza MD at 13:08 EDT Tel [phone], Service support ,
--- NOTE | 2017-07-31 12:30 | PCM.PROGNOTE ---
Patient Problems: Active and Suspected Problems Neutropenic fever (Acute) Severe sepsis (Acute) Acute renal injury (Acute) Diarrhea due to drug (Acute) Atrial fibrillation (Acute) Subjective: Patient was seen and examined today, he was admitted yesterday for neutropenic fever, he is no longer neutropenic and his T-max since midnight has been 99.1. - Physical Exam General: Alert, Oriented x3, Cooperative, No apparent distress, Well developed, Well nourished HEENT: Atraumatic, PERRLA, EOMI, Normocephalic Oral: Moist Mucosa Neck: Supple, No JVD, No Nuchal Rigidity, Trachea Midline, Thyroid Normal Size and Texture Lungs: Clear to auscultation, Normal air movement, No rhonchi, No wheeze, No rales Cardiovascular: No murmurs, PMI Normal, Irregular Rate, No rub noted, No Gallop Abdomen: Bowel Sounds Present, Soft, Non Tender, Non-Distended Extremities: No clubbing, No cyanosis, Capillary Refill Less than 3 Seconds Skin: No rashes, No breakdown Musculoskeletal: No Tenderness to Palpation of Joints or Extremities Neurological: Cranial nerves II-XII grossly intact, Neuro grossly intact, Sensory exam intact to light touch and pain, Coordination normal Psych/Mental Status: Normal Affect, Appropriate, Alert and oriented to time, place, person, mood and affect Vital Signs Temp Pulse Resp BP Pulse Ox 98.4 F 100 16 105/48 L 93 07/31/17 10:00 07/31/17 11:01 07/31/17 10:00 07/31/17 10:00 07/31/17 10:00 Oxygen Flow Rate (L/min) 2 Oxygen Delivery Method Room Air Weight: 85.5 kg Body Mass Index (BMI) 29.0 Intake and Output for Last 24 Hours 07/29/17 07/30/17 07/31/17 23:59 23:59 23:59 Intake Total 100 / 100 2292 / 2292 Output Total 200 / 200 Balance 100 / 100 2092 / 2092 Microbiology Past 72 Hours 07/30/17 23:30 Respiratory Panel (PCR) - Final Mucosa - Nasopharyngeal 07/31/17 02:45 Stool Occult Blood (ANANYA) - Final Stool 07/31/17 02:45 C. difficile DNA Amplification - Final Stool Laboratory Tests Past 24 Hrs 07/30/17 07/31/17 07/31/17 22:58 05:05 05:05 WBC 4.2 L RBC 3.67 L Hgb 10.7 L Hct 32.2 L MCV 87.7 MCH 29.2 MCHC 33.2 RDW 14.0 RDW Differential 44.8 H Plt Count 142 L MPV 9.8 Immature Gran % (Auto) PHYSICIAN OFFICE SECRETARY Neut % (Auto) PHYSICIAN OFFICE SECRETARY Lymph % (Auto) PHYSICIAN OFFICE SECRETARY [place] % (Auto) PHYSICIAN OFFICE SECRETARY Eos % (Auto) PHYSICIAN OFFICE SECRETARY Baso % (Auto) PHYSICIAN OFFICE SECRETARY Absolute Neuts (auto) 1.6 L Absolute Lymphs (auto) 1.55 Total Counted Not Reportable Neutrophils % (Manual) 18 L Band Neutrophils % 19 H Lymphocytes % (Manual) 37 Monocytes % (Manual) 25 H Basophils % (Manual) 1 Metamyelocytes % 1 Differential Comment 2+ Diff Path Review Reviewed Sodium 143 Potassium 3.4 L Chloride 110 H Carbon Dioxide 21.0 Anion Gap 12 BUN 29 H Creatinine 1.76 H Estim Creat Clear Calc 34.95 Est GFR (MDRD) Af Amer 49 L Est GFR (MDRD) Non-Af 41 L BUN/Creatinine Ratio 16.5 Glucose 61 L Lactic Acid 2.0 Calcium 7.6 L Troponin I Triglycerides Cholesterol LDL Cholesterol VLDL Cholesterol HDL Cholesterol 07/31/17 07/31/17 07/31/17 05:05 05:05 08:00 WBC RBC Hgb Hct MCV MCH MCHC RDW RDW Differential Plt Count MPV Immature Gran % (Auto) Neut % (Auto) Lymph % (Auto) [place] % (Auto) Eos % (Auto) Baso % (Auto) Absolute Neuts (auto) Absolute Lymphs (auto) Total Counted Neutrophils % (Manual) Band Neutrophils % Lymphocytes % (Manual) Monocytes % (Manual) Basophils % (Manual) Metamyelocytes % Differential Comment Diff Path Review Sodium Potassium Chloride Carbon Dioxide Anion Gap BUN Creatinine Estim Creat Clear Calc Est GFR (MDRD) Af Amer Est GFR (MDRD) Non-Af BUN/Creatinine Ratio Glucose Lactic Acid 1.9 Calcium Troponin I 0.027 0.052 H Triglycerides Cholesterol LDL Cholesterol VLDL Cholesterol HDL Cholesterol 07/31/17 10:50 WBC RBC Hgb Hct MCV MCH MCHC RDW RDW Differential Plt Count MPV Immature Gran % (Auto) Neut % (Auto) Lymph % (Auto) [place] % (Auto) Eos % (Auto) Baso % (Auto) Absolute Neuts (auto) Absolute Lymphs (auto) Total Counted Neutrophils % (Manual) Band Neutrophils % Lymphocytes % (Manual) Monocytes % (Manual) Basophils % (Manual) Metamyelocytes % Differential Comment Diff Path Review Sodium Potassium Chloride Carbon Dioxide Anion Gap BUN Creatinine Estim Creat Clear Calc Est GFR (MDRD) Af Amer Est GFR (MDRD) Non-Af BUN/Creatinine Ratio Glucose Lactic Acid Calcium Troponin I 0.085 H Triglycerides 107 Cholesterol 64 LDL Cholesterol 10 VLDL Cholesterol 21 HDL Cholesterol 33 L Medical Necessity - Tobacco Use Smoking Status: Former smoker Tobacco Use: Non-smoker Assessment/Plan Active and Suspected Problems Neutropenic fever (Acute) Severe sepsis (Acute) Acute renal injury (Acute) Diarrhea due to drug (Acute) Atrial fibrillation (Acute) #1 neutropenic fever-patient does not have any evidence of sepsis at this time, I do not believe that he had sepsis on admission either. Patient's antibiotics will continue one more day until blood culture results are available #2 diarrhea-probably secondary to chemotherapy, I will place patient on Bentyl and Imodium #3 new onset atrial fibrillation-cardiology is seeing the patient, I was contacted by them about an RV strain pattern they noted on his echo today, they raised concerns about a possible PE, I ordered a VQ scan on the patient today. #4 acute kidney injury on a backdrop of chronic kidney disease-according to the patient's oncologist, patient's normal kidney function runs about 1.2-1.3 creatinine, I will continue fluids at this time #5 prostate cancer #6 hypertension-oncology requested the patient's blood pressure medications be held due to his hypotension, his hydrochlorothiazide and Diovan will be held today #7 hyperlipidemia Code Visit Inpatient E&M: 74728 Subs Hosp L2
--- NOTE | 2017-07-31 12:50 | CASEMGMT ---
This RN CM to room to complete CM assessment and pt is sleeping at this time. Pt does not awaken to verbal stimuli or knock on the door. Will attempt again later. [place] RN CM
[2017-07-31] MEDS: Dicyclomine 10 MG Capsule 20 MG PO ×2 (12:59→21:23)
[2017-07-31] MEDS: Loperamide 2 MG Capsule PO (12:59)
[2017-07-31] MEDS: 0.9% Normal Saline 1,000 ML 100 ML IV ×2 (13:51→23:35)
--- NOTE | 2017-07-31 15:27 | CASEMGMT ---
Face to Face with patient for initial transition planning/care coordination assessment. RN JEFF introduced self and role at [facility], pt voices understanding and consents to assessment at this time. Pt is sitting up in chair in no distress at this time. Pt is A/O x4 at this time and answers all questions appropriately at this time. Care providers, pharmacy, and demographics verified. See attached link. Pt voices no further concerns/needs at this time. Advised pt to ask for CM if any further questions/concerns/needs arise, voices understanding. CM to follow for any further discharge planning/needs. PLAN: Home [place] PREM AGUILAR
[2017-07-31] MEDS: Atorvastatin Calcium 40 MG Tablet PO (21:22)
[2017-08-01] VITALS (12 sets, daily range): BP systolic 114–132; BP diastolic 49–80; PULSE 73–93; RESP 16–18; TEMP 37–37.4; O2SAT 94–97
[2017-08-01] MEDS: Dicyclomine 10 MG Capsule 20 MG PO ×2 (05:19→15:00)
[2017-08-01 07:00] LABS: Absolute Lymphocyte Count 1.27 X10^3/ul (0.83-4.51); Basophil# 0.03 X10^3/uL; Basophil% 0.4 % (0-1); Hematocrit 30.4 % (40-54); Lymphocyte # 1.27 X10^3/ul (4.0); Mean Corp Hgb Conc 32.9 g/gl (32-36); Mean Corpuscular Hgb 29.8 pg (27.0-32.0); Mean Corpuscular Volume 90.5 fL (80-94); Mean Platelet Vol. 10.9 fl (6.2-12.0); Monocyte# 1.38 X10^3/uL; Monocyte% 17.4 % (0-10); Neutrophil # 5.04 X10^3/uL (2.7-7.7); Neutrophil % 63.6 % (47-70); POSITIVE COUNT YES; POSITIVE DIFFERENTIAL NO; POSITIVE MORPHOLOGY YES; Platelet Count 161 K/mm3 (150-450); RBC Distribution Width CV 14.1 % (11.6-14.6); RBC Distribution Width SD 45.1 fl (35.1-43.9); Red Blood Count 3.36 M/mm3 (4.6-6.2); White Blood Count 7.9 K/mm3 (4.4-11.0)
--- NOTE | 2017-08-01 08:51 | PCM.PROGNOTE ---
Patient Problems: Active and Suspected Problems Neutropenic fever (Acute) Severe sepsis (Acute) Acute renal injury (Acute) Diarrhea due to drug (Acute) Atrial fibrillation (Acute) Subjective: he has no complaints this morning. He is eating. He denies nausea. Bowels were watery yesterday but more formed stools this morning. He denies cough and shortness of breath. He denies wheezing. He's not had a rash. No oral pain or dysgeusia. No chest pain. - Physical Exam General: Alert Oral: Moist Mucosa Lungs: Clear to auscultation Cardiovascular: Regular Rhythm - Regular currently, Irregular Rate Abdomen: Soft, Non Tender Vital Signs Temp Pulse Resp BP Pulse Ox 99.0 F 87 18 114/49 L 94 08/01/17 03:20 08/01/17 07:14 08/01/17 03:20 08/01/17 03:20 08/01/17 07:36 Oxygen Flow Rate (L/min) 2 Oxygen Delivery Method Room Air Weight: 85.5 kg Body Mass Index (BMI) 29.0 Intake and Output for Last 24 Hours 07/30/17 07/31/17 08/01/17 23:59 23:59 23:59 Intake Total 100 / 100 4091 / 4091 1193 / 1193 Output Total 400 / 400 150 / 150 Balance 100 / 100 3691 / 3691 1043 / 1043 Microbiology Past 72 Hours 07/31/17 02:45 Enteric Bacteriology - Final Stool 07/30/17 23:30 Respiratory Panel (PCR) - Final Mucosa - Nasopharyngeal 07/31/17 02:45 Stool Occult Blood (ANANYA) - Final Stool 07/31/17 02:45 C. difficile DNA Amplification - Final Stool Laboratory Tests Past 24 Hrs 07/31/17 07/31/17 08/01/17 05:05 10:50 05:45 WBC 7.9 RBC 3.36 L Hgb 10.0 L Hct 30.4 L MCV 90.5 MCH 29.8 MCHC 32.9 RDW 14.1 RDW Differential 45.1 H Plt Count 161 MPV 10.9 Immature Gran % (Auto) 2.600 H Neut % (Auto) 63.6 Lymph % (Auto) 16.0 L [place] % (Auto) 17.4 H Eos % (Auto) 0.0 Baso % (Auto) 0.4 Absolute Neuts (auto) 5.0 Absolute Lymphs (auto) 1.27 Total Counted Not Reportable Diff Path Review Reviewed Troponin I 0.085 H Triglycerides 107 Cholesterol 64 LDL Cholesterol 10 VLDL Cholesterol 21 HDL Cholesterol 33 L Medical Necessity - Tobacco Use Smoking Status: Former smoker Tobacco Use: Non-smoker Assessment/Plan Active and Suspected Problems Neutropenic fever (Acute) Severe sepsis (Acute) Acute renal injury (Acute) Diarrhea due to drug (Acute) Atrial fibrillation (Acute) Neutropenic fever. Assessment: -fevers resolved and ANC now normal. -Blood cultures negative. Plan: -Okay to discontinue antibiotics. -Okay for discharge home from an oncologic standpoint once he is clear from a cardiology standpoint.
[2017-08-01] MEDS: 0.9% Normal Saline 1,000 ML 100 ML IV (09:05)
[2017-08-01] MEDS: Aspirin 81 MG TAB.CHEW PO (09:13)
[2017-08-01] MEDS: Pantoprazole Sodium 40 MG Tablet PO (09:13)
[2017-08-01] MEDS: Metoprolol Tartrate 25 MG Tablet PO ×2 (09:13→17:40)
[2017-08-01] MEDS: buPROPion (XL) 150 MG TABLET.XL PO (09:14)
[2017-08-01] MEDS: Cyanocobalamin 500 MCG Tablet 1000 MCG PO (09:14)
--- NOTE | 2017-08-01 10:01 | PN.CARD_ITS ---
Subjectve: Patient feeling much better today, no further fevers. No chest pain or angina. Still remains in atrial fibrillation. VQ scan reportedly normal. Objective: Vital Signs Temp Pulse Resp BP Pulse Ox 98.6 F 80 16 119/63 97 08/01/17 09:16 08/01/17 09:16 08/01/17 09:16 08/01/17 09:16 08/01/17 09:16 Oxygen Flow Rate (L/min) 2 Oxygen Delivery Method Room Air Weight: 188 lb 7.924 oz Body Mass Index (BMI) 29.0 Intake and Output for Last 24 Hours 07/30/17 07/31/17 08/01/17 23:59 23:59 23:59 Intake Total 100 / 100 4091 / 4091 1193 / 1193 Output Total 400 / 400 150 / 150 Balance 100 / 100 3691 / 3691 1043 / 1043 General: Awake, Alert, Oriented x 3 HEENT: PERRL, EOMI, Sclera Non Icteric Neck: Supple, Good ROM, No Lymph Node Enlargement Lungs: Clear to auscultation Cardiovascular: Irregular Rhythm, Normal S1, Normal S2, No Murmurs, No Rubs, No Gallops 07/31/17 10:50: Troponin I 0.085 H, Triglycerides 107, Cholesterol 64, LDL Cholesterol 10, VLDL Cholesterol 21, HDL Cholesterol 33 L 08/01/17 05:45: WBC 7.9, RBC 3.36 L, Hgb 10.0 L, Hct 30.4 L, MCV 90.5, MCH 29.8 , MCHC 32.9, RDW 14.1, RDW Differential 45.1 H, Plt Count 161, MPV 10.9, Immature Gran % (Auto) 2.600 H, Neut % (Auto) 63.6, Lymph % (Auto) 16.0 L, [place] % (Auto) 17.4 H, Eos % (Auto) 0.0, Baso % (Auto) 0.4, Absolute Neuts (auto) 5.0 , Total Counted Not Reportable Rhythm: EKG: ECHO: Stress Test: Cardiac Cath: PCI: CT Surgery: Holter monitor: EPS: PPM: CXR: Chest CT Scan: Medical Necessity - Tobacco Use Smoking Status: Former smoker Tobacco Use: Non-smoker Assessment/Plan 1. Atrial fibrillation: Patient presents with neutropenic fever, chills, malaise, and paroxysmal atrial fibrillation, with a history of a previous CVA. It is possible the patient may have paroxysmal atrial fibrillation which may have contributed to his CVA in the past. In addition his 2D echo with Doppler suggest although not confirms acute RV strain with RV apical wall motion abnormalities and moderate point hypertension. Given the patient's chronic renal insufficiency, it is somewhat problematic to pursue CTA of his chest to rule out pulmonary embolism at this time. I would still recommend lower extremity Dopplers to determine if the patient has a DVT as this may explain his fever as well. VQ scan reportedly negative. I believe the patient would benefit from long-term anticoagulation therapy given his previous CVA, atrial fibrillation, and recently diagnosed prostate cancer requiring chemotherapy giving him an increased risk of thrombus formation. He is currently on renally adjusted subcu Lovenox which I would recommend continuing. Once his cardiac workup is been completed and his diagnosis has been obtained he may require a non-walking nuclear stress test in the near future to determine if he requires catheterization. Another option would be a VQ scan to determine if he has significant perfusion defect. Would Recommend Renally Adjusted Eliquis 2.5 Mg P.O. Twice Daily Once His Cardiac Workup Is Been Completed. 2. Coronary artery disease: The patient is weakly positive troponins which may be demand ischemia given his hyperdynamic LV function and possible acute RV strain. Would recommend a non-walking nuclear stress test to evaluate once the patient is recovered from his illnesses. No indication for urgent catheterization at this time. 3. Hyperlipidemia: Recommend obtaining a fasting lipid profile. His LDL should be less than 70. Continue statin based medications. 4. Discussed with Dr. Lopez. Thank you very much for the opportunity to put dissipate in the cardiac care of your patient. He will follow-up with me going forward.
[2017-08-01] MEDS: Rivaroxaban 15 MG Tablet PO (11:01)
[2017-08-01 15:25] LABS: Anion Gap 6 (5-15); BUN 26 mg/dL (7-18); BUN/Creat Ratio 24.3 RATIO (10-20); Calcium,Total 7.6 mg/dL (8.5-10.1); Chloride 112 mmol/L (98-107); Creatinine, Serum 1.07 mg/dL (0.70-1.30); EST Glomerular Filtration Rate 72 mL/min (>60); Est Glom Filt Rate - Afr Amer 87 mL/min (>60); Estimated Creatinine Clearance 57.49 ml/min; Glucose 90 mg/dL (74-106); Potassium 3.4 mmol/L (3.5-5.1); Sodium Level 141 mmol/L (136-145)
--- NOTE | 2017-08-01 16:03 | PCM.DC ---
- Discharge Diagnoses Current Active Problems: Current Active and Chronic Problems Neutropenic fever (Acute) Prostate cancer (Chronic) HTN (hypertension) (Chronic) CVA (cerebral vascular accident) (Chronic) Hyperlipidemia (Chronic) Depression (Chronic) Severe sepsis (Acute) Acute renal injury (Acute) Diarrhea due to drug (Acute) Atrial fibrillation (Acute) You will use the following diet at home:: No restrictions Your food should be the consistency of: Regular Your liquids should be the consistency of: Regular/Thin Discharge Activity: Return to Normal Activity Weight Bearing Status: Full weight bearing Additional Instructions: break your Valsartan in half to take 160 mg daily Allergies/Adverse Reactions: Allergies No Known Allergies Allergy (Verified 07/30/17 21:54) Medications to take at Discharge Atorvastatin Calcium [Lipitor] 40 mg PO QHS 07/30/17 Bupropion HCl [Bupropion Xl] 150 mg PO DAILY 07/30/17 Cholecalciferol (VIT D3) [Vitamin D3] 2,000 unit PO DAILY 07/30/17 Cyanocobalamin (Vitamin B-12) [Vitamin B-12] 1,000 mcg PO DAILY 07/30/17 Pantoprazole Sodium [Protonix] 40 mg PO DAILY 07/30/17 Metoprolol Tartrate [Lopressor (beta elsa)] 25 mg PO BID #60 tab 08/01/17 Rivaroxaban [Xarelto] 15 mg PO DAILY #30 tablet 08/01/17 Valsartan 160 mg PO DAILY #1 tablet 08/01/17 The following prescriptions were given: Rivaroxaban [Xarelto] 15 mg PO DAILY #30 tablet Valsartan 160 mg PO DAILY #1 tablet Metoprolol Tartrate [Lopressor (beta elsa)] 25 mg PO BID #60 tab Primary Care Physician: Paty Escobar,Out of [Primary Care Provider] - Please follow up with your Primary Care Physician in: next week to have your blood pressure checked Please Follow Up With: Julio C Ash MD When: in 2-3 weeks Please Follow Up With: Lawrence Barajas MD When: as directed
--- NOTE | 2017-08-01 18:57 | PCM.DC.SUM ---
Discharge Date and Diagnosis - Problem List Patient Problems: Active and Suspected Problems Neutropenic fever (Acute) Severe sepsis (Acute) Acute renal injury (Acute) Diarrhea due to drug (Acute) Atrial fibrillation (Acute) Date of Admission: 07/30/17 Date of Discharge: 08/01/17 - Primary Discharge Diagnosis Active and Suspected Problems #1 Neutropenic fever (Acute)-no evidence for sepsis or active infection #2 new onset atrial fibrillation #3 acute kidney injury #4 elevated troponin-etiology unclear #5 anemia of chronic disease-prostate cancer #6 prostate cancer #7 cerebrovascular disease #8 moderate pulmonary hypertension - Secondary Discharge Diagnosis Chronic Problems Prostate cancer (Chronic) HTN (hypertension) (Chronic) CVA (cerebral vascular accident) (Chronic) Hyperlipidemia (Chronic) Depression (Chronic) Hospital Course and Treatment Operations: None Procedures: 2-D Echocardiogram Summary of Care Provided: The patient is a 71 year old M was admitted directly to [facility] on PCU from [facility] emergency room in [place] due to neutropenic fever. Patient went to the emergency room at [facility] for evaluation of an elevated temperature, he is actively being treated for prostate cancer and receives chemotherapy. Lab obtained at [facility] showed the patient to be neutropenic, no evidence of pulmonary infiltrates were noted, no active site of infection was noted to be present according to the workup done in the emergency room. Patient was given 2 g of Rocephin, 4.5 g of Zosyn, and 1500 mg of Anka Meissen, he requested transfer from [facility] emergency room to [facility] for further care. Patient was placed on meropenem during his hospitalization, blood cultures were obtained and these were negative, he was also noted to be in atrial fibrillation which was new onset, he was seen in consultation by cardiology and an echocardiogram was obtained which showed a normal ejection fraction with evidence of moderate pulmonary hypertension. Patient was given a beta-elsa for rate control, he was given IV fluids due to an elevated creatinine, and he was placed on Xarelto for anticoagulation. On 08/01/17, patient was seen and examined, his blood cultures were negative for growth at that time, his rate was well controlled on oral Lopressor, and I contacted the patient's neurologist for guidance on whether to keep the patient on Plavix aspirin and Xarelto, Dr. Godinez was covering for the patient's neurologist and felt uncomfortable with discontinuing his baby aspirin but did request that the Plavix be discontinued while the patient was taken Xarelto. Patient was discharged in stable condition on 08/01/17. Again, patient did not have sepsis or infection Discharge Activity: Return to Normal Activity Weight Bearing Status: Full weight bearing Home Medications: Medications to take at Discharge Atorvastatin Calcium [Lipitor] 40 mg PO QHS 07/30/17 Bupropion HCl [Bupropion Xl] 150 mg PO DAILY 07/30/17 Cholecalciferol (VIT D3) [Vitamin D3] 2,000 unit PO DAILY 07/30/17 Cyanocobalamin (Vitamin B-12) [Vitamin B-12] 1,000 mcg PO DAILY 07/30/17 Pantoprazole Sodium [Protonix] 40 mg PO DAILY 07/30/17 Metoprolol Tartrate [Lopressor (beta elsa)] 25 mg PO BID #60 tab 08/01/17 Rivaroxaban [Xarelto] 15 mg PO DAILY #30 tablet 08/01/17 Valsartan 160 mg PO DAILY #1 tablet 08/01/17 Following Prescrptions Were Given to Patient: Rivaroxaban [Xarelto] 15 mg PO DAILY #30 tablet Valsartan 160 mg PO DAILY #1 tablet Metoprolol Tartrate [Lopressor (beta elsa)] 25 mg PO BID #60 tab Primary Care Physician: Paty Escobar,Out of [Primary Care Provider] - Please follow up with your Primary Care Physician in: next week to have your blood pressure checked Please Follow Up With: Julio C Ash MD When: in 2-3 weeks Please Follow Up With: Lawrence Barajas MD When: as directed Disposition: Home Minutes spent on discharge:: 32 Patient Condition:: Stable Medical Necessity - Tobacco Use Smoking Status: Former smoker Tobacco Use: Non-smoker Meaningful Use Info Meaningful Use Diagnoses (Choose all that apply): None applicable Code Visit Inpatient E&M: 68180 Disch Hosp
--- NOTE | 2017-08-01 19:04 | DS.PCM_ITS ---
Discharge Date and Diagnosis - Problem List Patient Problems: Active and Suspected Problems Neutropenic fever (Acute) Severe sepsis (Acute) Acute renal injury (Acute) Diarrhea due to drug (Acute) Atrial fibrillation (Acute) Date of Admission: 07/30/17 Date of Discharge: 08/01/17 - Primary Discharge Diagnosis Active and Suspected Problems #1 Neutropenic fever (Acute)-no evidence for sepsis or active infection #2 new onset atrial fibrillation #3 acute kidney injury #4 elevated troponin-etiology unclear #5 anemia of chronic disease-prostate cancer #6 prostate cancer #7 cerebrovascular disease #8 moderate pulmonary hypertension - Secondary Discharge Diagnosis Chronic Problems Prostate cancer (Chronic) HTN (hypertension) (Chronic) CVA (cerebral vascular accident) (Chronic) Hyperlipidemia (Chronic) Depression (Chronic) Hospital Course and Treatment Operations: None Procedures: 2-D Echocardiogram Summary of Care Provided: The patient is a 71 year old M was admitted directly to [facility] on PCU from [facility] emergency room in [place] due to neutropenic fever. Patient went to the emergency room at [facility] for evaluation of an elevated temperature, he is actively being treated for prostate cancer and receives chemotherapy. Lab obtained at [facility] showed the patient to be neutropenic, no evidence of pulmonary infiltrates were noted, no active site of infection was noted to be present according to the workup done in the emergency room. Patient was given 2 g of Rocephin, 4.5 g of Zosyn, and 1500 mg of Anka Meissen, he requested transfer from [facility] emergency room to [facility] for further care. Patient was placed on meropenem during his hospitalization, blood cultures were obtained and these were negative, he was also noted to be in atrial fibrillation which was new onset, he was seen in consultation by cardiology and an echocardiogram was obtained which showed a normal ejection fraction with evidence of moderate pulmonary hypertension. Patient was given a beta-elsa for rate control, he was given IV fluids due to an elevated creatinine, and he was placed on Xarelto for anticoagulation. On 08/01/17, patient was seen and examined, his blood cultures were negative for growth at that time, his rate was well controlled on oral Lopressor, and I contacted the patient's neurologist for guidance on whether to keep the patient on Plavix aspirin and Xarelto, Dr. Godinez was covering for the patient's neurologist and felt uncomfortable with discontinuing his baby aspirin but did request that the Plavix be discontinued while the patient was taken Xarelto. Patient was discharged in stable condition on 08/01/17. Again, patient did not have sepsis or infection Discharge Activity: Return to Normal Activity Weight Bearing Status: Full weight bearing Home Medications: Medications to take at Discharge Atorvastatin Calcium [Lipitor] 40 mg PO QHS 07/30/17 Bupropion HCl [Bupropion Xl] 150 mg PO DAILY 07/30/17 Cholecalciferol (VIT D3) [Vitamin D3] 2,000 unit PO DAILY 07/30/17 Cyanocobalamin (Vitamin B-12) [Vitamin B-12] 1,000 mcg PO DAILY 07/30/17 Pantoprazole Sodium [Protonix] 40 mg PO DAILY 07/30/17 Metoprolol Tartrate [Lopressor (beta elsa)] 25 mg PO BID #60 tab 08/01/17 Rivaroxaban [Xarelto] 15 mg PO DAILY #30 tablet 08/01/17 Valsartan 160 mg PO DAILY #1 tablet 08/01/17 Following Prescrptions Were Given to Patient: Rivaroxaban [Xarelto] 15 mg PO DAILY #30 tablet Valsartan 160 mg PO DAILY #1 tablet Metoprolol Tartrate [Lopressor (beta elsa)] 25 mg PO BID #60 tab Primary Care Physician: Paty Escobar,Out of [Primary Care Provider] - Please follow up with your Primary Care Physician in: next week to have your blood pressure checked Please Follow Up With: Julio C Ash MD When: in 2-3 weeks Please Follow Up With: Lawrence Barajas MD When: as directed Disposition: Home Minutes spent on discharge:: 32 Patient Condition:: Stable Medical Necessity - Tobacco Use Smoking Status: Former smoker Tobacco Use: Non-smoker Meaningful Use Info Meaningful Use Diagnoses (Choose all that apply): None applicable Code Visit Inpatient E&M: 28623 Disch Hosp
[2017-08-04 11:58] LABS: Pathologist Review Reviewed
== END 2017-08-01 20:40 | disposition home or self-care (01) | DRG 809 ==
PROVIDERS: Admitting Provider Internal Medicine; Visit Provider Internal Medicine
DX: D70.1 Agranulocytosis secondary to cancer chemotherapy (principal); N17.9 Acute kidney failure, unspecified; K52.1 Toxic gastroenteritis and colitis; C79.51 Secondary malignant neoplasm of bone; R50.81 Fever presenting with conditions classified elsewhere; C61 Malignant neoplasm of prostate; E78.5 Hyperlipidemia, unspecified; F32.9 Major depressive disorder, single episode, unspecified; D64.81 Anemia due to antineoplastic chemotherapy; I95.9 Hypotension, unspecified; I25.10 Atherosclerotic heart disease of native coronary artery without angina pectoris; I12.9 Hypertensive chronic kidney disease with stage 1 through stage 4 chronic kidney disease, or unspecified chronic kidney disease; N18.9 Chronic kidney disease, unspecified; I27.20 Pulmonary hypertension, unspecified; I48.0 Paroxysmal atrial fibrillation; E86.0 Dehydration; R79.89 Other specified abnormal findings of blood chemistry; T45.1X5A Adverse effect of antineoplastic and immunosuppressive drugs, initial encounter; Y92.009 Unspecified place in unspecified non-institutional (private) residence as the place of occurrence of the external cause; Z86.73 Personal history of transient ischemic attack (TIA), and cerebral infarction without residual deficits; Z87.891 Personal history of nicotine dependence; Z79.82 Long term (current) use of aspirin; Z79.01 Long term (current) use of anticoagulants; Z79.899 Other long term (current) drug therapy
CPT/HCPCS: 36415; 71046; 78582; 80048; 80061; 82274; 83605; 84484; 85025; 87040; 87493; 87506; 87633; 93005; 93306; 97802; A9540; A9567; J2185; J7030; J7040; Q9957; C8929

== ENCOUNTER → 2017-08-27 10:06 | Outpatient (CLI) | payer MEDICARE, SELFPAY ==
[2017-08-27] VITALS (7 sets, daily range): BP systolic 90–139; BP diastolic 63–120; PULSE 69–148; RESP 16–18; TEMP 36.5; O2SAT 95; BMI 28.6
[2017-08-27] MEDS: 0.9% Normal Saline 1,000 ML 999 ML IV (10:30)
--- NOTE | 2017-08-27 16:44 | NURSING ---
UPON FINISHING HYDRATION AT 1150, ORTHOSTATIC BP'S WERE STABLE, HOWEVER UPON STANDING PT HR INCREASED FROM [address] PURDY, HE STATED PT COULD BE DISCHARGED HOME, WITH THE INSTRUCTIONS TO CONTACT HIM IF HE SHOULD DEVELOP A FEVER AND/OR DIARRHEA PERSISTS OR WORSENS. PT AND DAUGHTER VERBALLY STATED THEY UNDERSTOOD INSTRUCTIONS. PT DISCHARGED HOME
== END ==
PROVIDERS: Visit Provider Internal Medicine Hematology & Oncology
DX: E86.0 Dehydration (principal); A04.72 Enterocolitis due to Clostridium difficile, not specified as recurrent
CPT/HCPCS: 96360; J7030; A4216

== ENCOUNTER → 2018-02-03 08:56 | Outpatient (CLI) | payer MEDICARE, SELFPAY ==
[2018-02-03 09:03] LABS: Absolute Lymphocyte Count 1.47 X10^3/ul (0.83-4.51); Absolute Neutrophil Count 3.9 X10^3/uL (2.0-7.7); Basophil# 0.06 X10^3/uL; Eosinophil# 0.05 X10^3/uL; Eosinophils% 0.8 % (0-5); Hematocrit 39.2 % (40-54); Hemoglobin 12.1 g/dl (13.0-16.5); Lymphocyte # 1.47 X10^3/ul (4.0); Lymphocyte % 24.7 % (19-41); Mean Corp Hgb Conc 30.9 g/gl (32-36); Mean Corpuscular Hgb 29.5 pg (27.0-32.0); Mean Corpuscular Volume 95.6 fL (80-94); Mean Platelet Vol. 10.8 fl (6.2-12.0); Monocyte# 0.51 X10^3/uL; Monocyte% 8.6 % (0-10); Neutrophil # 3.86 X10^3/uL (2.7-7.7); Neutrophil % 64.9 % (47-70); Platelet Count 196 K/mm3 (150-450); RBC Distribution Width CV 15.4 % (11.6-14.6); RBC Distribution Width SD 52.4 fl (35.1-43.9)
[2018-02-03 09:04] LABS: POSITIVE COUNT NO; POSITIVE DIFFERENTIAL NO; POSITIVE MORPHOLOGY NO
== END ==
PROVIDERS: Referring Provider Internal Medicine Hematology & Oncology; Visit Provider Internal Medicine Hematology & Oncology
DX: C61 Malignant neoplasm of prostate (principal)
CPT/HCPCS: 85025

== ENCOUNTER → 2018-06-24 11:05 | Outpatient (CLI) | payer MEDICARE, SELFPAY ==
--- NOTE | 2018-06-24 | FLU_PTH ---
PATIENT: MATTHEW JO LOC: U#:[id number] AGE/SX: 79/M ROOM: RE06/24/[address]: Dr. Lawrence Barajas MD : 1945 BED: DIS: SPEC #: [id number] RECD: 06/24/18 13:59 STATUS: ISABELA LIA #: [id number] TOMMY: 06/24/18 00:[address]: Lawrence Barajas DEPT: CYTOLOGY RECD BY: Mervat Martínez ENTERED: 06/24/18 14:25 SP TYPE: Fluid OTHR DR: Out of Town Doctor Tissues: THORACIC FLUID Procedures: Special Stain Group II Surgery Specimen Level IV Cytospin Fluid HEADER OPERATION: Ultrasound-guided right thoracentesis PRE-OP DIAGNOSIS: Prostate CA TISSUE SUBMITTED: Thoracentesis fluid for cytology DIAGNOSIS CYTOLOGY Thoracentesis fluid for cytology (cytospin and cell block): Negative for malignant cells. NETTIE:ayla 06/25/18 COMMENT Correlation with clinical findings and appropriate follow up are necessary. CYTOLOGY STUDY Slides are reviewed. CYTOLOGY GROSS Received is 100 ml of yellow cloudy fluid labeled with the patient's name and and designated per the requisition as thoracentesis. Submitted for cytology preparation including cell block. / 06/24/18 TC:5 CPT: 60825, 00946
--- NOTE | 2018-06-24 11:15 | US_ITS ---
PROCEDURE: ULTRASOUND GUIDED THORACENTESIS. DATE: June 24, 2018. INDICATION: Male, 72 years old. Right pleural effusion PHYSICIAN: Moustapha Galarza M.D. PROCEDURE: The risks, benefits, and alternatives to the procedure were explained to the patient. The specific risks of bleeding, infection, and pneumothorax requiring chest tube insertion were discussed and accepted. Written informed consent was obtained. Ultrasonographic evaluation of the right lower pleural space was carried out. An adequate pocket was identified. The patient was placed in the sitting, upright position. The overlying skin was prepped and draped in sterile fashion. 1% lidocaine was administered subcutaneously for local anesthesia. Under ultrasound guidance, a 5 Lithuanian thoracentesis needle/catheter system was advanced into the right posterior lower pleural fluid collection. Approximately 1070 mL of ] colored fluid was drained. The catheter was removed, and a sterile dressing was applied. A 120 mL specimen was collected and sent to the laboratory for analysis, as requested by the referring clinician. The patient tolerated the procedure well. A chest x-ray was ordered. US/Thoracentesis W US IMPRESSION: Ultrasound-guided right thoracentesis. Electronically Signed: Moustapha Galarza, at 14:12 EDT , Service support ,
[2018-06-24 12:56] LABS: Absolute Neutrophil Count 5.7 X10^3/uL (2.0-7.7); Basophil# 0.02 X10^3/uL; Basophil% 0.3 % (0-1); Eosinophil# 0.03 X10^3/uL; Eosinophils% 0.4 % (0-5); Hematocrit 37.9 % (40-54); Hemoglobin 12.4 g/dl (13.0-16.5); Lymphocyte % 16.5 % (19-41); Mean Corp Hgb Conc 32.7 g/gl (32-36); Mean Corpuscular Hgb 30.8 pg (27.0-32.0); Mean Corpuscular Volume 94.3 fL (80-94); Mean Platelet Vol. 10.2 fl (6.2-12.0); Monocyte# 0.85 X10^3/uL; Monocyte% 10.8 % (0-10); Neutrophil # 5.65 X10^3/uL (2.7-7.7); Neutrophil % 71.7 % (47-70); Platelet Count 165 K/mm3 (150-450); RBC Distribution Width SD 46.4 fl (35.1-43.9); Red Blood Count 4.02 M/mm3 (4.6-6.2); White Blood Count 7.9 K/mm3 (4.4-11.0)
[2018-06-24 12:58] LABS: POSITIVE COUNT NO; POSITIVE DIFFERENTIAL NO; POSITIVE MORPHOLOGY NO
[2018-06-24 13:10] LABS: International Normalized Ratio 1.1; Prothrombin Time (Protime)PT. 14.2 SECONDS (11.7-14.9)
[2018-06-24 13:23] LABS: Partial Thromboplast Time 34.3 Seconds (24.1-36.2)
--- NOTE | 2018-06-24 13:40 | RAD_ITS ---
STUDY: X-RAY CHEST REASON FOR EXAM: Male, 72 years old. The patient is status post right thoracentesis. TECHNIQUE: AP inspiration and expiration views. COMPARISON: Comparison is made with prior study dated July 31, 2017. FINDINGS: The patient is status post right thoracentesis. There is no evidence of pneumothorax. Minimal residual blunting of the right costo phrenic angle with mild right basilar atelectasis. RAD/Chest Insp/Exp 2 View IMPRESSION: Status post right thoracentesis. There is no evidence of pneumothorax. Mild blunting of the right costophrenic angle with underlying atelectasis. Electronically Signed: Moustapha Galarza, at 14:04 EDT , Service support ,
[2018-06-24 14:00] LABS: Cytology, Body Fluid / CSF SEE PATHOLOGY REPORT
[2018-06-24 14:17] LABS: Body Fluid Mononuclear WBC # 0.864 10^3/uL; Body Fluid Polynuclear WBC # 0.055 10^3/uL; Body Fluid Total Cells Counted 1.031 10^3/ul; White Blood Count/Body Fluid 0.919 10^3/uL
[2018-06-24 14:46] LABS: Appearance/Body Fluid SL CLDY; Auto B Fluid Analyzer BKGD Ct COUNTS W/IN LIMITS (W/IN LIMITS); Color/Body Fluid YELLOW; Source- Body Fluid THORACENTESIS
[2018-06-24 14:47] LABS: Red Cell Count/Body Fluid 54 /mm3
[2018-06-24 15:01] LABS: Body Fluid QC Type(s) BF1Q; Lymphocytes 64 %; Mesothelial Cells 12 %; Monocytes 3 %; Neutrophil (Segs) 9 %; Other Cell Type/BF 12 %
[2018-06-24 15:15] LABS: Glucose, Body Fluid 95 mg/dL (40-70)
[2018-06-24 15:36] VITALS: BP 131/61; BP 141/64; BP 167/73; PULSE 66; PULSE 67; PULSE 70; RESP 16; RESP 18; O2SAT 96; O2SAT 99
[2018-06-25 12:07] LABS: Pathologist Comment/Body Fluid Reviewed
== END ==
PROVIDERS: Referring Provider Internal Medicine Hematology & Oncology; Visit Provider Internal Medicine Hematology & Oncology
DX: J90 Pleural effusion, not elsewhere classified (principal); C61 Malignant neoplasm of prostate; C79.9 Secondary malignant neoplasm of unspecified site; I48.91 Unspecified atrial fibrillation
CPT/HCPCS: 32555; 36415; 71046; 82945; 85025; 85610; 85730; 88108; 88305; 88313; 89050

== ENCOUNTER 2019-02-03 12:09 | Emergency (ER) | payer MEDICARE, SELFPAY ==
[2019-02-03 12:10] VITALS: BP 120/53; PULSE 74; RESP 18; TEMP 36.5; O2SAT 89; BMI 29.3
[2019-02-03 12:24] VITALS: BP 112/62; PULSE 65; RESP 16; O2SAT 96
--- NOTE | 2019-02-03 12:32 | ED.VIS.GEN ---
History of Present Illness Chief Complaint: General Illness Detail of Chief Complaint: To ER because of rash and palpable lump Informant: Patient, Significant Other, - - Per family sent by Dr. Barajas Onset: Yesterday Context: Sudden Onset Timing: Continuous Quality: Rash and pain controlled with Tylenol Location: Left T4 dermatome Current Severity: Mild Maximum Severity: Moderate Worsened by: Touch Relieved by: Tylenol Associated Symptoms: None Narrative: She is a 73-year-old male with history of prostate cancer. He received radiation treatment 1 month ago. He is also on liquid chemo. He was sent to the emerge from because of rash and apparent lump near his left breast. He denies fever, chills night sweats. He denies neck pain, photophobia, neck stiffness or headache. He has no other symptoms. Prior similar symptoms: No Recent Illness/Hospitalization: Yes - Past Medical History (1) Atrial fibrillation Status: Acute (2) CVA (cerebral vascular accident) Status: Chronic (3) Depression Status: Chronic (4) HTN (hypertension) Status: Chronic (5) Hyperlipidemia Status: Chronic (6) Prostate cancer Status: Chronic Past Medical History - Allergies and Home Meds Allergies/Adverse Reactions: Allergies No Known Allergies Allergy (Verified 02/03/19 12:10) Primary Care Physician: [facility] ,Out of [Primary Care Provider] - Prior records reviewed: Yes Lives: Spouse/ Significant Other Smoking Status: Former smoker Alcohol: None Drugs: None - Family History Sibling Family History: Reports: Cancer - Father with prostate and throat cancer Review of Systems General: Reports: Malaise. Denies: Chills, Fever, Sweats Eyes: Reports: - - No photophobia. Denies: Visual changes - bilaterally, Blurred Vision - bilaterally ENT: Denies: Bilateral ear pain, Rhinorrhea, Sore throat Cardiovascular: Reports: Chest pain. Denies: Palpitations, Heart racing Respiratory: Denies: Dyspnea, Cough, Sputum, Dyspnea on exertion Gastrointestinal: Denies: Abdominal pain, Nausea, Vomiting, Diarrhea, Melena, Hematochezia Skin: Reports: Rash Neurological: Denies: Weakness, Parasthesia, Numbness Hematologic: Reports: Easy bruising. Denies: Easy bleeding Physical Exam Vital Signs/Narrative: Vital Signs Temp Pulse Resp BP Pulse Ox 02/03/19 12:24 65 16 112/62 96 02/03/19 12:10 97.7 F L 74 18 120/53 L 89 Inital Vital Signs reviewed: Yes General: Well nourished, Well developed, No Acute Distress Head: Normocephalic, Atraumatic Eyes: Perrl, EOMI. Negative for: Pale conjunctiva, Scleral icterus ENT: Moist mucous membranes, No rhinorrhea Neck: Supple, Nontender Cardiovascular: Regular rate, Regular rhythm, No murmurs, Normal S1, Normal S2 Respiratory: No distress, CTA bilaterally, Chest tenderness, - - Has herpes varicella-zoster left T4 dermatome. There is no palpable mass. There is no axillary lymphadenopathy. Back: Nontender. Negative for: Normal Inspection Skin: Normal color, Rash - Herpes varicella-zoster. Negative for: Cyanosis, Diaphoresis, Jaundice Neurological: Alert, Oriented x3, Cranial nerves II-XII grossly intact, Normal Strength, Normal Sensation Psychological: Normal affect, Normal Mood Diagnostic/Tx/Re-eval - Medical Decision Making Onset less than 24 hours patient was treated with Famvir. ED Disposition - Plan for ED Patient: Disposition: Home or Assisted Living Diagnosis: VZV (varicella-zoster virus) infection Instructions: Shingles (Herpes Zoster) Prescriptions: Famciclovir [Famvir] 500 mg PO TID #21 tab Prescription Printed Referrals: [facility] Doctor,Out of [Primary Care Provider] - Lawrence Barajas MD [STAFF PHYSICIAN] - Keep Jesús appointment
[2019-02-03 12:43] VITALS: O2SAT 94
== END 2019-02-03 12:58 | disposition home or self-care (01) ==
LOC: ED 12:57
PROVIDERS: Emergency Provider Emergency Medicine
DX: B02.9 Zoster without complications (principal); N63.20 Unspecified lump in the left breast, unspecified quadrant; I10 Essential (primary) hypertension; I48.91 Unspecified atrial fibrillation; E78.5 Hyperlipidemia, unspecified; C61 Malignant neoplasm of prostate; F32.9 Major depressive disorder, single episode, unspecified; Z79.01 Long term (current) use of anticoagulants; Z79.899 Other long term (current) drug therapy; Z86.73 Personal history of transient ischemic attack (TIA), and cerebral infarction without residual deficits; Z87.891 Personal history of nicotine dependence
CPT/HCPCS: 99282